=== PATIENT | female | born 1940 | race Caucasian/White ===

== ENCOUNTER 2016-08-06 12:47 | Inpatient (IN) | payer OTHER, BC ==
[2016-08-06 12:55] VITALS: BMI 34.9
[2016-08-06] MEDS ORDERED: LABETALOL HCL 5 MG/1 ML (100MG/20 ML VIAL) IVPUSH ONE (13:34)
[2016-08-06 13:38] LABS: BASOPHIL 0.3 % (0-2.0); EOSINOPHIL 0.1 % (0-4.5); MCH 29.6 pg (25.7-33.7); MEAN CELL VOLUME 87.2 fl (80-96); MEAN PLT VOLUME 8.2 fl (7.5-11.1); NEUTROPHILS 67.3 % (42.8-82.8); PLATELET COUNT 249 K/MM3 (134-434); WHITE BLOOD COUNT 8.2 K/mm3 (4.0-10.8)
[2016-08-06] MEDS ORDERED: LABETALOL HCL 5 MG/1 ML (100MG/20 ML VIAL) ONE (13:38)
--- NOTE | 2016-08-06 13:40 | PDOC ---
History of Present Illness <Allie Morales - Last Filed: 08/06/16 16:15> - History of Present Illness Initial Comments: 08/06/16 13:35 75-year-old female with a past medical history of hypertension, who was on medications in the past, but has not been on any medications for quite some time She has no history of CAD or diabetes She states that yesterday she felt a little off balance and had a headache, so she took her blood pressure, and it was 210/105, but she refused to come to the ER at that time She took a baby aspirin, and before bedtime took her blood pressure again and it was 160/90 She denies any focal neurologic complaints She awakened this morning with a blood pressure of 160/86, but then she started feeling dizzy and off balance again and her blood pressure was 220/110, prompting her to come to the emergency department She denies any focal neurologic complaints, and there were no reports of slurred speech or dysarthric speech She denies any visual changes, double vision, or blurred vision She denies any focal weakness She denies any chest pain or shortness of breath She denies any lower extremity edema She denies any other complaints at this time She does have a recent compression fracture in her lumbar spine, and is having some pain from this She just had a steroid injection for this She denies any other complaints at this time, and the remainder of the review of systems is negative <Shae Bowden - Last Filed: 08/07/16 15:29> - General Chief Complaint: Blood Pressure Problem Stated Complaint: ELEVATED BLOOD PRESSURE X 1 DAY Time Seen by Provider: 08/06/16 13:22 Past History <Allie Morales - Last Filed: 08/06/16 16:15> - Past Medical History Other medical history: COMPRESSION FRACTURE L4 - Surgical History Cholecystectomy: Yes - Psycho/Social/Smoking Cessation Hx Anxiety: No Suicidal Ideation: No Smoking History: Never smoked Information on smoking cessation initiated: No Hx Alcohol Use: No Drug/Substance Use Hx: No Substance Use Type: None <Shae Bowden - Last Filed: 08/07/16 15:29> - Past Medical History Allergies/Adverse Reactions: Allergies Allergy/AdvReac Type Severity Reaction Status Date / Time No Known Allergies Allergy Verified 08/06/16 12:48 Home Medications: Ambulatory Orders NK [No Known Home Medication] 08/06/16 *Physical Exam - Vital Signs Last Vital Signs Temp Pulse Resp BP Pulse Ox 98.1 F 70 16 176/75 97 08/06/16 12:48 08/06/16 16:08 08/06/16 16:08 08/06/16 16:08 08/06/16 13:28 <Allie Morales - Last Filed: 08/06/16 16:15> - Vital Signs Last Vital Signs Temp Pulse Resp BP Pulse Ox 98.1 F 74 16 216/103 97 08/06/16 12:48 08/06/16 13:28 08/06/16 13:28 08/06/16 13:28 08/06/16 13:28 - Physical Exam Comments: 08/06/16 13:37 Physical exam Last Vital Signs Temp Pulse Resp BP Pulse Ox 98.1 F 74 16 216/103 97 08/06/16 12:48 08/06/16 13:28 08/06/16 13:28 08/06/16 13:28 08/06/16 13:28 GENERAL: The patient is awake, alert, and fully oriented, and in no apparent distress. HEAD: Normal with no signs of trauma. EYES: Pupils equal, round and reactive to light, extraocular movements intact, sclera anicteric, conjunctiva are normal. ENT: nares patent, oropharynx clear without exudates. Moist mucous membranes. NECK: Normal range of motion, supple LUNGS: Breath sounds equal, clear to auscultation bilaterally. No wheezes, and no crackles. HEART: Regular rate and rhythm, normal S1 and S2 without murmur, rub or gallop. ABDOMEN: Soft, nontender, normoactive bowel sounds. No guarding, no rebound. No masses appreciated. EXTREMITIES: Normal range of motion, no edema. No clubbing or cyanosis. No cords, erythema, or tenderness. NEURO: Mental status: The patient is oriented x3. Cranial nerves: Cranial nerves II through XII are intact Motor: The upper extremities are 5 over 5 in all muscle groups. The lower extremities are 5 over 5 in all muscle groups. Sensation: Sensation is intact to light touch throughout. Cerebellar: Cvzxys-giyemc-[id number] is normal in both upper extremities. Heel-knee- martinez is normal in both lower extremities. Grossly nonfocal neurologic exam without gait testing PSYCH: Normal mood, normal affect. SKIN: Warm, Dry, <Shae Bowden - Last Filed: 08/07/16 15:29> ED Treatment Course - LABORATORY CBC & Chemistry Diagram: 08/06/16 13:15 08/06/16 13:15 - ADDITIONAL ORDERS Additional order review: Laboratory Results 08/06/16 08/06/16 08/06/16 13:15 13:15 13:15 Sodium 134 L Potassium 3.8 Chloride 106 Carbon Dioxide 25 Anion Gap 3 L BUN 18 Creatinine 0.8 Creat Clearance w eGFR > 60 Random Glucose 99 Calcium 9.5 Magnesium 2.0 Total Bilirubin 1.0 AST 30 ALT 41 H Alkaline Phosphatase 79 Creatine Kinase 142 H Troponin I < 0.03 L Total Protein 6.7 Albumin 3.9 08/06/16 13:15 RBC 4.99 MCV 87.2 MCHC 34.0 RDW 13.0 MPV 8.2 Neutrophils % 67.3 Lymphocytes % 23.6 Monocytes % 8.7 Eosinophils % 0.1 Basophils % 0.3 - Medications Given in the ED: ED Medications Discontinued Medications Generic Name Dose Route Start Last Admin Trade Name Freq PRN Reason Stop Dose Admin Labetalol HCl 5 mg 08/06/16 13:34 08/06/16 14:13 Normodyne Injection - IVPUSH 08/06/16 13:35 5 mg ONCE ONE Administration <Allie Morales - Last Filed: 08/06/16 16:15> - LABORATORY CBC & Chemistry Diagram: 08/06/16 22:07 08/06/16 22:07 - RADIOLOGY Radiology Studies Ordered: Category Date Time Status HEAD CT WITHOUT CONTRAST [CT] Stat CT Scan 08/06/16 13:33 Ordered CHEST X-RAY PORTABLE* [RAD] Stat Radiology 08/06/16 13:34 Ordered <Shae Bowden - Last Filed: 08/07/16 15:29> Medical Decision Making - Medical Decision Making 08/06/16 16:[address] Tien Alamo at [phone], Dr. Best is software applications engineer. Awaiting call back. <Allie Morales - Last Filed: 08/06/16 16:15> - Medical Decision Making 08/06/16 13:39 KG Normal sinus rhythm 73, normal axis Normal AV and IV conduction time Normal QTC Essentially normal EKG When compared to the EKG of 05/27/2008 Today's EKG is unchanged from the prior EKG Most likely accelerated hypertension 08/06/16 16:05 Chest [id number] heart, no acute chest pathology, unchanged since prior CT scan of the head without No intracranial hemorrhage, no discrete infarct, mild periventricular and subcortical microvascular changes noted Labwork reviewed Laboratory Results - last 24 hr 08/06/16 08/06/16 08/06/16 13:15 13:15 13:15 WBC 8.2 RBC 4.99 Hgb 14.8 Hct 43.5 MCV 87.2 MCHC 34.0 RDW 13.0 Plt Count 249 MPV 8.2 Neutrophils % 67.3 Lymphocytes % 23.6 Monocytes % 8.7 Eosinophils % 0.1 Basophils % 0.3 Sodium 134 L Potassium 3.8 Chloride 106 Carbon Dioxide 25 Anion Gap 3 L BUN 18 Creatinine 0.8 Creat Clearance w eGFR > 60 Random Glucose 99 Calcium 9.5 Magnesium Total Bilirubin 1.0 AST 30 ALT 41 H Alkaline Phosphatase 79 Creatine Kinase 142 H Troponin I < 0.03 L Total Protein 6.7 Albumin 3.9 08/06/16 13:15 WBC RBC Hgb Hct MCV MCHC RDW Plt Count MPV Neutrophils % Lymphocytes % Monocytes % Eosinophils % Basophils % Sodium Potassium Chloride Carbon Dioxide Anion Gap BUN Creatinine Creat Clearance w eGFR Random Glucose Calcium Magnesium 2.0 Total Bilirubin AST ALT Alkaline Phosphatase Creatine Kinase Troponin I Total Protein Albumin Repeat blood pressure Vital Signs - 24 hr 08/06/16 08/06/16 08/06/16 12:48 13:28 13:40 Temperature 98.1 F Pulse Rate 76 Pulse Rate [ 74 Right Radial] Respiratory 18 16 Rate Blood Pressure 210/101 Blood Pressure 216/103 182/81 [Left Arm] O2 Sat by Pulse 100 97 Oximetry (%) 08/06/16 08/06/16 08/06/16 14:01 14:33 14:51 Temperature Pulse Rate Pulse Rate [ 73 70 64 Right Radial] Respiratory 18 16 16 Rate Blood Pressure Blood Pressure 192/83 162/76 161/74 [Left Arm] O2 Sat by Pulse Oximetry (%) 08/06/16 15:32 Temperature Pulse Rate Pulse Rate [ 70 Right Radial] Respiratory 16 Rate Blood Pressure Blood Pressure 154/74 [Left Arm] O2 Sat by Pulse Oximetry (%) 08/06/16 16:[address] Best covering Dr. Alamo Will admit for accelerated hypertension <Shae Bowden - Last Filed: 08/07/16 15:29> *DC/Admit/Observation/Transfer <Allie Morales - Last Filed: 08/06/16 16:15> - Discharge Dispostion Admit: Yes <Shae Bowden - Last Filed: 08/07/16 15:29> Diagnosis at time of Disposition: Dizziness, Headache, Accelerated hypertension - Discharge Dispostion Condition at time of disposition: Fair
[2016-08-06 13:50] LABS: CPK(DFH) 142 IU/L (26-140)
[2016-08-06 13:51] LABS: ALBUMIN 3.9 g/dl (3.5-5.0); ALK PHOS 79 U/L (32-92); ANION GAP 3 (8-16); CALCIUM 9.5 mg/dl (8.4-10.2); CO2 25 mmol/L (22-28); CREATININE 0.8 mg/dl (0.6-1.3); GLUCOSE,RANDOM 99 mg/dl (74-106); SGOT/AST 30 U/L (10-42); SGPT/ALT 41 U/L (10-40); TOT PROT 6.7 g/dl (6.4-8.3)
[2016-08-06 14:29] LABS: TROPONIN I (DFP) < 0.03 ng/ml (0.03-0.50)
[2016-08-06] MEDS ORDERED: ONDANSETRON *ODT* 4 MG TABLET SL PRN (18:51)
[2016-08-06] MEDS ORDERED: ACETAMINOPHEN 325 MG TABLET (FP) PO PRN (18:51)
[2016-08-06 23:04] LABS: ALBUMIN 3.6 g/dl (3.5-5.0); BILIRUBIN,TOTAL 0.5 mg/dl (0.2-1.0); CALCIUM 9.3 mg/dl (8.4-10.2); MCH 29.1 pg (25.7-33.7); MCHC 33.4 g/dl (32.0-36.0); MEAN CELL VOLUME 87.3 fl (80-96); MEAN PLT VOLUME 8.9 fl (7.5-11.1); PLATELET COUNT 262 K/MM3 (134-434); RDW 12.8 % (11.6-15.6); TOT PROT 6.4 g/dl (6.4-8.3); WHITE BLOOD COUNT 9.4 K/mm3 (4.0-10.8)
--- NOTE | 2016-08-07 07:46 | HP ---
Admitting History and Physical - Admission History of Present Illness: 75-year-old female with a past medical history of hypertension, who was on medications in the past, but has not taken on any medications for quite some time She has no history of CAD or diabetes She states that yesterday she felt a little off balance and had a headache, so she took her blood pressure, and it was 210/105, but she refused to come to the ER at that time She took a baby aspirin, and before bedtime took her blood pressure again and it was 160/90 She woke up yesterday with a blood pressure of 160/86, but then she started feeling dizzy and off balance again and her blood pressure was 220/110, prompting her to come to the emergency department This am c/o feeling off balance - Past Medical History Cardiovascular: Yes: HTN Musculoskeletal: Yes: Chronic low back pain, Other (compresion fracture) - Smoking History Smoking history: Never smoked Have you smoked in the past 12 months: No - Alcohol/Substance Use Hx Alcohol Use: No Home Medications - Allergies Allergies/Adverse Reactions: Allergies Allergy/AdvReac Type Severity Reaction Status Date / Time No Known Allergies Allergy Verified 08/06/16 12:48 - Home Medications Home Medications: Ambulatory Orders NK [No Known Home Medication] 08/06/16 Review of Systems - Review of Systems Neck: reports: No Symptoms Cardiovascular: denies: Chest Pain, Shortness of Breath Respiratory: denies: SOB, Wheezing Gastrointestinal: denies: Abdominal Pain Genitourinary: reports: No Symptoms Musculoskeletal: reports: Back Pain Neurological: reports: Dizziness, Incoordination, Unsteady Gait. denies: Change in Speech, Confusion Physical Examination Vital Signs: Vital Signs Temperature 97.7 F 08/07/16 06:37 Pulse Rate 66 08/07/16 06:37 Respiratory Rate 17 08/07/16 06:37 Blood Pressure 155/67 08/07/16 06:37 O2 Sat by Pulse Oximetry (%) 100 08/07/16 06:37 Constitutional: Yes: No Distress Cardiovascular: Yes: Regular Rate and Rhythm Respiratory: Yes: Regular, CTA Bilaterally Gastrointestinal: Yes: Normal Bowel Sounds, Soft Edema: No Neurological: Yes: Alert, Oriented, Unsteady Gait Labs: CBC, BMP 08/06/16 22:07 08/06/16 22:07 Imaging - Results Chest X-ray: Report Reviewed Cat Scan: Report Reviewed EKG: Report Reviewed Problem List - Problems (1) Accelerated hypertension Assessment/Plan: monitor bp on current meds echo labs Code(s): I10 - ESSENTIAL (PRIMARY) HYPERTENSION (2) Dizziness Assessment/Plan: maybe due to htn r/o cva--mri Code(s): R42 - DIZZINESS AND GIDDINESS (3) Back pain Assessment/Plan: review old records Code(s): M54.9 - DORSALGIA, UNSPECIFIED
[2016-08-07 09:17] LABS: CHOLESTEROL 203 mg/dl
[2016-08-07] MEDS: LISINOPRIL 5 MG TABLET (FP) PO SCH (10:00)
[2016-08-07] MEDS: amLODIPine BESYLATE 5 MG TABLET (FP) PO SCH (10:00)
[2016-08-07 11:22] LABS: CPK(DFH) 86 IU/L (26-140)
--- NOTE | 2016-08-07 13:55 | EKG ---
Test Reason : Blood Pressure : / mmHG Vent. Rate : 073 BPM Atrial Rate : 073 BPM P-R Int : 138 ms QRS Dur : 090 ms QT Int : 406 ms P-R-T Axes : 049 044 060 degrees QTc Int : 447 ms NORMAL SINUS RHYTHM NONSPECIFIC ST ABNORMALITY WHEN COMPARED WITH ECG OF 27-MAY-2008 10:14, NO SIGNIFICANT CHANGE WAS FOUND Confirmed by MD DESAI MARJORY ([id number]) on 08/07/2016 1:55:35 PM Referred By: MARK LYONS Confirmed By:AGUILAR DESAI MD
[2016-08-07 15:31] LABS: TROPONIN I (DFP) < 0.03 ng/ml (0.03-0.50)
[2016-08-07 21:23] LABS: URINE APPEARANCE Clear; URINE BILIRUBIN Negative (NEGATIVE); URINE BLOOD Trace-intact (NEGATIVE); URINE COLOR YELLOW; URINE GLUCOSE (UA) Negative (NEGATIVE); URINE KETONE Trace (NEGATIVE); URINE LEUK ESTERASE Trace (NEGATIVE); URINE NITRITE Negative (NEGATIVE); URINE PROTEIN Negative (NEGATIVE); URINE UROBILINOGEN 1.0 E.U/dl (0.2-1.0)
--- NOTE | 2016-08-08 07:37 | PN ---
Progress Note, Physician History of Present Illness: C/O UNSTEADY GAIT - Current Medication List Current Medications: Active Medications Acetaminophen (Tylenol -) 650 mg PO Q6H PRN PRN Reason: FEVER OR PAIN Amlodipine Besylate (Norvasc -) 5 mg PO DAILY [facility] Last Admin: 08/07/16 10:00 Dose: 5 mg Lisinopril (Prinivil) 5 mg PO DAILY [facility] Last Admin: 08/07/16 10:00 Dose: 5 mg Ondansetron HCl (Zofran Odt -) 4 mg SL Q6H PRN PRN Reason: NAUSEA AND/OR VOMITING - Objective Vital Signs: Vital Signs Temperature 98.2 F 08/08/16 06:00 Pulse Rate 72 08/08/16 06:00 Respiratory Rate 19 08/08/16 06:00 Blood Pressure 138/65 08/08/16 06:00 O2 Sat by Pulse Oximetry (%) 98 08/08/16 06:00 Cardiovascular: Yes: Regular Rate and Rhythm Respiratory: Yes: Regular, CTA Bilaterally Gastrointestinal: Yes: Normal Bowel Sounds, Soft. No: Tenderness Edema: No Neurological: Yes: Alert, Unsteady Gait Labs: CBC, BMP 08/06/16 22:07 08/06/16 22:07 Problem List - Problems (1) Accelerated hypertension Assessment/Plan: monitor bp on current meds echo labs Code(s): I10 - ESSENTIAL (PRIMARY) HYPERTENSION (2) Dizziness Assessment/Plan: maybe due to htn r/o cva--mri Code(s): R42 - DIZZINESS AND GIDDINESS (3) Back pain Assessment/Plan: reviewed old records--compression fracture pt Code(s): M54.9 - DORSALGIA, UNSPECIFIED
[2016-08-08] MEDS: amLODIPine BESYLATE 5 MG TABLET (FP) PO SCH (09:23)
[2016-08-08] MEDS: LISINOPRIL 5 MG TABLET (FP) PO SCH (09:23)
[2016-08-08] MEDS ORDERED: PT OWN MED DRAWER 7, Y5N ONE (10:16)
[2016-08-09 06:13] VITALS: BP 146/66; PULSE 66; TEMP 98.1
[2016-08-09] MEDS: amLODIPine BESYLATE 5 MG TABLET (FP) PO SCH (09:56)
[2016-08-09] MEDS: LISINOPRIL 5 MG TABLET (FP) PO SCH (09:56)
== END 2016-08-09 13:00 | DRG 305 ==
LOC: FER 12:47 → FM/S 18:57
PROVIDERS: ADMIT Family Medicine; ATTEND Family Medicine
DX: I10 Essential (primary) hypertension (principal); R51 Headache; R42 Dizziness and giddiness; M54.5 Low back pain; M48.50XS Collapsed vertebra, not elsewhere classified, site unspecified, sequela of fracture
CPT/HCPCS: 36415; 70450-TC; 70551-TC; 71010-TC; 80053; 80061; 81003; 82550; 83036; 83735; 84443; 84484; 85025; 85027; 87086; 87899; 93005; 93306-TC; 93880-TC; 97116-GP; 97161-GP; 99284-25

== ENCOUNTER 2017-02-03 12:00 | Inpatient (IN) | payer OTHER, BC ==
[2017-02-03] MEDS ORDERED: SODIUM CHLORIDE 1,000 ML IV SCH (12:15)
--- NOTE | 2017-02-03 12:20 | PDOC ---
History of Present Illness - General Stated Complaint: SYNCOPE Time Seen by Provider: 02/03/17 12:11 History Source: Patient, Family (Daughter @ bedside) - History of Present Illness Initial Comments: 02/03/17 12:11 Patient is a 76 y.o. female with a PMH of HTN and HLD who presents via EMS following a witnessed syncopal episode. Patient was sitting in a chair speaking normally when daughter noticed she was diaphoretic, patient then became unresponsive for approximately 2-3 minutes. Patient did not fall off the chair or experience any associated trauma. Patient awoke spontaneously while family was waiting for EMS. As per patient and family patient is currently at baseline mental status and patient denies any active medical complaints. Patient was evaluated by her PCP, Dr. Alamo, earlier this week and told she had to start a statin. NKDA Surgical: Cholecytectomy Social: denies cigarettes, denies alcohol, denies recreational drugs PMD: Dr. Tien Alamo Past History - Past Medical History Allergies/Adverse Reactions: Allergies Allergy/AdvReac Type Severity Reaction Status Date / Time No Known Allergies Allergy Verified 02/03/17 12:57 Home Medications: Ambulatory Orders Acetaminophen [Tylenol .Regular Strength -] 650 mg PO Q6H PRN #0 tablet Amlodipine Besylate [Norvasc -] 5 mg PO DAILY #0 tablet 08/09/16 Cholecalciferol (Vitamin D3) [Vitamin D3 -] 1,000 unit PO DAILY 02/03/17 Losartan Potassium 100 mg PO DAILY 02/03/17 HTN: Yes - Surgical History Cholecystectomy: Yes - Suicide/Smoking/Psychosocial Hx Smoking History: Never smoked Have you smoked in the past 12 months: No Hx Alcohol Use: No Drug/Substance Use Hx: No Substance Use Type: None Review of Systems - Review of Systems Constitutional: No: Chills, Fever Respiratory: No: Cough, Shortness of Breath Cardiac (ROS): Yes: Syncope. No: Chest Pain, Lightheadedness, Palpitations : No: Burning, Dysuria Endocrine: Yes: Excessive Sweating All Other Systems: Reviewed and Negative *Physical Exam - Physical Exam General Appearance: Yes: Nourished, Obese HEENT: positive: JOSE Neck: positive: Trachea midline, Supple Respiratory/Chest: positive: Lungs Clear, Normal Breath Sounds Cardiovascular: positive: S1, S2 Vascular Pulses: Dorsalis-Pedis (R): 2+, Doralis-Pedis (L): 2+ Gastrointestinal/Abdominal: positive: Normal Bowel Sounds, Soft Extremity: positive: Normal Capillary Refill, Normal Inspection Integumentary: positive: Normal Color, Dry, Warm Neurologic: positive: permit technician II-XII NML intact, Fully Oriented, Alert, Motor Strength 5/5 ED Treatment Course - LABORATORY CBC & Chemistry Diagram: 02/03/17 12:13 02/03/17 12:12 Medical Decision Making - Medical Decision Making 02/03/17 12:40 Patient is a 76 y.o. female with a PMH of HTN, HLD who presents following a witnessed syncopal episode with no seizure like activity. Initial DDx is for CVA/TIA vs. CT vs. Vasovagal. PLAN: 1. CT Scan, CBC, CMP, UA 02/03/17 12:41 EKG shows NSR, HR 66 with no deviations, normal intervals, no ST elevations/ depressions, good R wave progression V1-V6 02/03/17 12:53 CT head negative. As clinical suspicion for stroke is low given patient's PE, no ASA administered, however given first time syncopal episode patient requires further cardiac evaluation. Paged Dr. Best (covering for patient's PCP Dr. Tien Alamo) for observation admission. 02/03/17 14:20 Patient to be admitted to Dr. Alamo with consult to Dr. Friedman (cardiology). *DC/Admit/Observation/Transfer Diagnosis at time of Disposition: Syncope - Discharge Dispostion Condition at time of disposition: Good Admit: Yes - Referrals - Patient Instructions - Post Discharge Activity
[2017-02-03] MEDS ORDERED: ASPIRIN 325 MG TABLET PO ONE (12:51)
[2017-02-03 13:05] LABS: ALBUMIN 3.6 g/dl (3.4-5.0); ANION GAP 8 (8-16); CHOLESTEROL 181 mg/dL (50-200); CO2 24 mmol/L (21-32); CREATININE 0.9 mg/dL (0.55-1.02); GLUCOSE,RANDOM 107 mg/dL (74-106); SGOT/AST 27 U/L (15-37); SGPT/ALT 36 U/L (12-78)
[2017-02-03 13:07] LABS: ALK PHOS 82 U/L (45-117); BILIRUBIN,TOTAL 0.5 mg/dL (0.2-1.0); CPK 91 IU/L (26-192); TOT PROT 6.5 g/dl (6.4-8.2); TROPONIN I < 0.02 ng/ml (0.00-0.05)
[2017-02-03 13:28] LABS: BASOPHIL 0.5 % (0-2.0); MCH 29.6 pg (25.7-33.7); MCHC 33.3 g/dl (32.0-36.0); MEAN CELL VOLUME 88.9 fl (80-96); MEAN PLT VOLUME 8.6 fl (7.5-11.1); NEUTROPHILS 55.5 % (42.8-82.8); PLATELET COUNT 231 K/MM3 (134-434); WHITE BLOOD COUNT 6.4 K/mm3 (4.0-10.0)
--- NOTE | 2017-02-03 14:07 | PDOC ---
Attending Attestation - Resident Resident Name: Letitia Rivero - ED Attending Attestation I have performed the following: I have examined & evaluated the patient, The case was reviewed & discussed with the resident, I agree w/resident's findings & plan, Exceptions are as noted - HPI HPI: 02/03/17 14:08 76 year old female with HTN and HLD presents with syncope. The patient was in her usual state of health. She was cleaning her hair when her daughter noticed her become diaphoretic and syncopized. Denies head trauma. Did not know any chest pain or shortness of breath. Patient does not recall the events. Return back to baseline with no deficits. - Physicial Exam PE: 02/03/17 14:11 GENERAL: Awake, alert, and fully oriented, in no acute distress. HEAD: No signs of trauma EYES: PERRLA, EOMI, sclera anicteric, conjunctiva clear ENT: Auricles normal inspection, hearing grossly normal, nares patent, oropharynx clear without exudates. NECK: Normal ROM, supple, no lymphadenopathy, JVD, or masses LUNGS: Breath sounds equal, clear to auscultation bilaterally. No wheezes, and no crackles HEART: Regular rate and rhythm, normal S1 and S2, no murmurs, rubs or gallops ABDOMEN: Soft, nontender, normoactive bowel sounds. No guarding, no rebound. No masses EXTREMITIES: Normal range of motion, no edema. No clubbing or cyanosis. No cords, erythema, or tenderness NEUROLOGICAL: Cranial nerves II through XII intact. Normal speech. 5/5 strength upper and lower extremities. No pronator drift. Finger to nose intact. SKIN: Warm, Dry, normal turgor, no rashes or lesions noted. - Medical Decision Making 02/03/17 14:11 Vital Signs Temp Pulse Resp BP Pulse Ox 97.7 F 66 18 126/60 99 02/03/17 12:15 02/03/17 13:10 02/03/17 13:10 02/03/17 13:10 02/03/17 13:10 Patient appears to have a syncopal episode. We'll need to rule out cardiac etiology. EKG is reassuring. However, we'll need to admit the patient to the hospital for telemetry and observation and for further management. Blood work here demonstrates no acute findings and a troponin is negative. We will touch base with the PMD and admit the patient to the hospital. Heart Score/ECG Review #1 ECG reviewed & interpreted by me at: 12:15 02/03/17 14:01 NSR 66, no std/hector, normal axis, normal intervals, QTC 457 msec, on brugada, no HOCM, no WPW
[2017-02-03 15:49] LABS: CPK 90 IU/L (26-192)
[2017-02-03 15:50] LABS: TROPONIN I < 0.02 ng/ml (0.00-0.05)
--- NOTE | 2017-02-03 16:37 | CON.CARD ---
Consult Consult Specialty:: Cardiology Reason for Consultation:: Syncope - History of Present Illness History of Present Illness: 76 F wit HTN was seen in ER now with syncope witnessed by her DTR who is present fo this interview. She was sitting and became weak and diahretic and then passed out lasting about 1 min. No palpitations, chest pain, urinary or bowel incontinence. No prior syncope. She is complaint with medication Amlodipine and losartan Echocardiogram 07/2016 was normal. - History Source History Provided By: Patient, Family Member Limitations to Obtaining History: No Limitations - Past Medical History Cardio/Vascular: Yes: HTN Musculoskeletal: Yes: Chronic low back pain, Other (compresion fracture) - Alcohol/Substance Use Hx Alcohol Use: No - Smoking History Smoking history: Never smoked Have you smoked in the past 12 months: No Home Medications - Allergies Allergies/Adverse Reactions: Allergies Allergy/AdvReac Type Severity Reaction Status Date / Time No Known Allergies Allergy Verified 02/03/17 12:57 - Home Medications Home Medications: Ambulatory Orders Acetaminophen [Tylenol .Regular Strength -] 650 mg PO Q6H PRN #0 tablet Amlodipine Besylate [Norvasc -] 5 mg PO DAILY #0 tablet 08/09/16 Cholecalciferol (Vitamin D3) [Vitamin D3 -] 1,000 unit PO DAILY 02/03/17 Losartan Potassium 100 mg PO DAILY 02/03/17 Review of Systems - Review of Systems Constitutional: reports: No Symptoms Eyes: reports: No Symptoms HENT: reports: No Symptoms Neck: reports: No Symptoms Cardiovascular: reports: No Symptoms Respiratory: reports: No Symptoms Gastrointestinal: reports: No Symptoms Genitourinary: reports: No Symptoms Breasts: reports: No Symptoms Reported Vital Signs: Vital Signs Temperature 97.7 F 02/03/17 12:15 Pulse Rate 66 02/03/17 13:10 Respiratory Rate 18 02/03/17 13:10 Blood Pressure 126/60 02/03/17 13:10 O2 Sat by Pulse Oximetry (%) 99 02/03/17 13:10 Constitutional: Yes: Well Nourished, No Distress, Calm Eyes: Yes: WNL, Conjunctiva Clear, EOM Intact HENT: Yes: Atraumatic, Normocephalic Neck: Yes: Supple, Trachea Midline Respiratory: Yes: Regular, CTA Bilaterally Gastrointestinal: Yes: Normal Bowel Sounds, Soft Cardiovascular: Yes: Regular Rate and Rhythm JVD: No Carotid Bruit: No Heart Sounds: Yes: S1, S2 Edema: No - Other Data Labs, Other Data: CBC, BMP 02/03/17 12:13 02/03/17 12:12 Troponin, BNP 02/03/17 02/03/17 12:12 15:09 Troponin I < 0.02 < 0.02 Troponin, BNP 02/03/17 02/03/17 12:12 15:09 Troponin I < 0.02 < 0.02 Imaging - Results Chest X-ray: Report Reviewed Problem List - Problems (1) Syncope Code(s): R55 - SYNCOPE AND COLLAPSE Assessment/Plan 76 F with HTN and unprovoked syncope. ECG shows NSR without conduction abnormality. History suggestive of vasovagal event. Monitor on telemetry for 24 hours Check orthostatic BP. Can continue with out patient BP therapy
[2017-02-03] MEDS: D5-1/2NS+20 MEQ KCL - 20 MEQ/1,000 ML INFUS.BAG IV SCH (17:04)
[2017-02-03 18:03] VITALS: BMI 38.1
[2017-02-03 18:54] LABS: URINE APPEARANCE SLCLOUDY; URINE BILIRUBIN NEGATIVE (NEGATIVE); URINE BLOOD NEGATIVE (NEGATIVE); URINE COLOR YELLOW; URINE GLUCOSE (UA) NEGATIVE (NEGATIVE); URINE KETONE TRACE (NEGATIVE); URINE NITRITE NEGATIVE (NEGATIVE); URINE PROTEIN NEGATIVE (NEGATIVE); URINE UROBILINOGEN NEGATIVE mg/dL (0.2-1.0)
[2017-02-03 19:42] LABS: CPK 77 IU/L (26-192)
[2017-02-03 19:43] LABS: TROPONIN I < 0.02 ng/ml (0.00-0.05)
[2017-02-03 19:55] LABS: INR 1.1 (0.82-1.09); PROTHROMBIN TIME (PATIENT) 12.4 SEC (9.98-11.88)
[2017-02-03] MEDS: HEPARIN NA (PORCINE) 5,000 UNITS/ML 1ML VIAL SQ SCH (21:33)
[2017-02-03 21:42] LABS: URINE LEUK ESTERASE TRACE (NEGATIVE)
[2017-02-03 22:18] LABS: URINE BACTERIA FEW /hpf (NEGATIVE); URINE RBC 0-2 /hpf (0-3)
[2017-02-04 07:11] LABS: ALBUMIN 3.1 g/dl (3.4-5.0); ANION GAP 8 (8-16); BASOPHIL 0.6 % (0-2.0); BILIRUBIN,TOTAL 0.6 mg/dL (0.2-1.0); CALCIUM 8.4 mg/dL (8.5-10.1); CHOLESTEROL 155 mg/dL (50-200); CO2 24 mmol/L (21-32); CREATININE 0.8 mg/dL (0.55-1.02); EOSINOPHIL 3.8 % (0-4.5); GLUCOSE,RANDOM 95 mg/dL (74-106); MCH 29.7 pg (25.7-33.7); MCHC 33.2 g/dl (32.0-36.0); MEAN CELL VOLUME 89.4 fl (80-96); NEUTROPHILS 47.9 % (42.8-82.8); PLATELET COUNT 224 K/MM3 (134-434); RDW 13.5 % (11.6-15.6); SGOT/AST 19 U/L (15-37); SGPT/ALT 32 U/L (12-78); WHITE BLOOD COUNT 6.4 K/mm3 (4.0-10.0)
[2017-02-04 07:12] LABS: ALK PHOS 71 U/L (45-117); CPK 84 IU/L (26-192); TROPONIN I < 0.02 ng/ml (0.00-0.05)
[2017-02-04] MEDS: ASPIRIN COATED 81 MG TABLET.EC PO SCH (09:18)
[2017-02-04] MEDS: HEPARIN NA (PORCINE) 5,000 UNITS/ML 1ML VIAL SQ SCH ×2 (09:18→21:10)
--- NOTE | 2017-02-04 12:13 | HP ---
Admitting History and Physical - Primary Care Physician PCP: Tien Alamo - Admission Chief Complaint: SYNCOPE History of Present Illness: Patient is a 76 y.o. female with a PMH of HTN and HLD who presents via EMS following a witnessed syncopal episode. Patient was sitting in a chair speaking normally when daughter noticed she was diaphoretic, patient then became unresponsive for approximately 2-3 minutes. Patient did not fall off the chair or experience any associated trauma. Patient awoke spontaneously while family was waiting for EMS. As per patient and family patient is currently at baseline mental status and patient denies any active medical complaints. History Source: Patient, Medical Record - Past Medical History Cardiovascular: Yes: HTN ...: No Musculoskeletal: Yes: Chronic low back pain, Other (compresion fracture) - Smoking History Smoking history: Never smoked Have you smoked in the past 12 months: No - Alcohol/Substance Use Hx Alcohol Use: No Home Medications - Allergies Allergies/Adverse Reactions: Allergies Allergy/AdvReac Type Severity Reaction Status Date / Time No Known Allergies Allergy Verified 02/03/17 12:57 - Home Medications Home Medications: Ambulatory Orders Acetaminophen [Tylenol .Regular Strength -] 650 mg PO Q6H PRN #0 tablet Amlodipine Besylate [Norvasc -] 5 mg PO DAILY #0 tablet 08/09/16 Cholecalciferol (Vitamin D3) [Vitamin D3 -] 1,000 unit PO DAILY 02/03/17 Losartan Potassium 100 mg PO DAILY 02/03/17 Review of Systems - Review of Systems Constitutional: reports: Weakness Eyes: reports: No Symptoms HENT: reports: No Symptoms Neck: reports: No Symptoms Cardiovascular: reports: No Symptoms Respiratory: reports: No Symptoms Gastrointestinal: reports: No Symptoms Genitourinary: reports: No Symptoms Musculoskeletal: reports: No Symptoms Integumentary: reports: No Symptoms Neurological: reports: Syncope Endocrine: reports: No Symptoms Hematology/Lymphatic: reports: No Symptoms Psychiatric: reports: No Symptoms Physical Examination Vital Signs: Vital Signs Temperature 98.2 F 02/04/17 07:14 Pulse Rate 74 02/04/17 07:14 Respiratory Rate 18 02/04/17 07:16 Blood Pressure 148/72 02/04/17 07:14 O2 Sat by Pulse Oximetry (%) 99 02/04/17 07:16 Constitutional: Yes: Mild Distress Eyes: Yes: WNL HENT: Yes: WNL Neck: Yes: WNL Cardiovascular: Yes: WNL Respiratory: Yes: WNL Gastrointestinal: Yes: WNL Musculoskeletal: Yes: WNL Extremities: Yes: WNL Edema: No Peripheral Pulses WNL: Yes Integumentary: Yes: WNL Wound/Incision: Yes: Clean/Dry Neurological: Yes: WNL ...Motor Strength: WNL Psychiatric: Yes: WNL Labs: CBC, BMP 02/04/17 05:00 02/04/17 05:00 Problem List - Problems (1) Syncope Code(s): R55 - SYNCOPE AND COLLAPSE (2) Accelerated hypertension Code(s): I10 - ESSENTIAL (PRIMARY) HYPERTENSION (3) Dizziness Code(s): R42 - DIZZINESS AND GIDDINESS Assessment/Plan CARDIOLOGY WORKUP CHECK LABS PT EVAL FALL RISKS NEUROLOGY EVAL
[2017-02-04] MEDS: D5-1/2NS+20 MEQ KCL - 20 MEQ/1,000 ML INFUS.BAG IV SCH (14:05)
--- NOTE | 2017-02-04 15:58 | CONSULT ---
Consult - text type - Consultation Consultation Note: Neurology History of Present Illness Patient is a 76 y.o. female with a PMH of HTN and HLD who presented via EMS following a witnessed syncopal episode. Patient was sitting in a chair speaking normally when daughter noticed she was diaphoretic, patient then became unresponsive for approximately 2-3 minutes. Patient did not fall off the chair or experience any associated trauma. Patient awoke spontaneously while family was waiting for EMS. She was admitted for further work up. CT head completed and did not show acute changes. Patient at baseline mental status without deficits. Getting cardiac workup, on telemetry, and neurologically stable at this time. Past History - Past Medical History Allergies/Adverse Reactions: Allergies Allergy/AdvReac Type Severity Reaction Status Date / Time No Known Allergies Allergy Verified 02/03/17 12:57 Home Medications: Ambulatory Orders Acetaminophen [Tylenol .Regular Strength -] 650 mg PO Q6H PRN #0 tablet Amlodipine Besylate [Norvasc -] 5 mg PO DAILY #0 tablet 08/09/16 Cholecalciferol (Vitamin D3) [Vitamin D3 -] 1,000 unit PO DAILY 02/03/17 Losartan Potassium 100 mg PO DAILY 02/03/17 HTN: Yes - Surgical History Cholecystectomy: Yes - Suicide/Smoking/Psychosocial Hx Smoking History: Never smoked Have you smoked in the past 12 months: No Hx Alcohol Use: No Drug/Substance Use Hx: No Substance Use Type: None Review of Systems - Review of Systems Constitutional: No: Chills, Fever Respiratory: No: Cough, Shortness of Breath Cardiac (ROS): Yes: Syncope. No: Chest Pain, Lightheadedness, Palpitations : No: Burning, Dysuria Endocrine: Yes: Excessive Sweating All Other Systems: Reviewed and Negative *Physical Exam Vital Signs Period Temp Pulse Resp BP Sys/Bauman Pulse Ox Last 24 Hr 98 F-98.5 F 66-85 16-20 135-158/67-82 99-100 - Physical Exam General Appearance: Yes: Nourished, Obese HEENT: positive: JOSE Neck: positive: Trachea midline, Supple Respiratory/Chest: positive: Lungs Clear, Normal Breath Sounds Cardiovascular: positive: S1, S2 Vascular Pulses: Dorsalis-Pedis (R): 2+, Doralis-Pedis (L): 2+ Gastrointestinal/Abdominal: positive: Normal Bowel Sounds, Soft Extremity: positive: Normal Capillary Refill, Normal Inspection Integumentary: positive: Normal Color, Dry, Warm Neurologic: positive: air conditioning unit tester II-XII NML intact, Fully Oriented, Alert, Motor Strength 5/5, sensory intact, gait deferred CBCD WBC 6.4 K/mm3 (4.0-10.0) 02/04/17 05:00 RBC 4.36 M/mm3 (3.60-5.2) 02/04/17 05:00 Hgb 12.9 GM/dL (10.7-15.3) 02/04/17 05:00 Hct 39.0 % (32.4-45.2) 02/04/17 05:00 MCV 89.4 fl (80-96) 02/04/17 05:00 MCHC 33.2 g/dl (32.0-36.0) 02/04/17 05:00 RDW 13.5 % (11.6-15.6) 02/04/17 05:00 Plt Count 224 K/MM3 (134-434) 02/04/17 05:00 MPV 9.0 fl (7.5-11.1) 02/04/17 05:00 CMP Sodium 142 mmol/L (136-145) 02/04/17 05:00 Potassium 4.1 mmol/L (3.5-5.1) 02/04/17 05:00 Chloride 110 mmol/L (98-107) H 02/04/17 05:00 Carbon Dioxide 24 mmol/L (21-32) 02/04/17 05:00 Anion Gap 8 (8-16) 02/04/17 05:00 BUN 11 mg/dL (7-18) D 02/04/17 05:00 Creatinine 0.8 mg/dL (0.55-1.02) 02/04/17 05:00 Creat Clearance w eGFR > 60 (>60) 02/04/17 05:00 Calcium 8.4 mg/dL (8.5-10.1) L 02/04/17 05:00 Total Bilirubin 0.6 mg/dL (0.2-1.0) 02/04/17 05:00 AST 19 U/L (15-37) D 02/04/17 05:00 ALT 32 U/L (12-78) 02/04/17 05:00 Alkaline Phosphatase 71 U/L (45-117) 02/04/17 05:00 Total Protein 6.0 g/dl (6.4-8.2) L 02/04/17 05:00 Albumin 3.1 g/dl (3.4-5.0) L 02/04/17 05:00 CT head reviewed Medical Decision Making 76 y.o. female with a PMH of HTN and HLD who presented via EMS following a witnessed syncopal episode. Patient was sitting in a chair speaking normally when daughter noticed she was diaphoretic, patient then became unresponsive for approximately 2-3 minutes. Patient did not fall off the chair or experience any associated trauma. Patient awoke spontaneously while family was waiting for EMS. She was admitted for further work up. CT head completed and did not show acute changes Would not require further imaging Getting cardiac workup, on telemetry, and neurologically stable at this time Follow up cardiology rec;d Monitor BP, maintain < 140/90 On amlodipine and losartan Maintain hydration Fall precautions DVT ppx Patient at baseline mental status without deficits.
--- NOTE | 2017-02-04 16:02 | PN ---
Progress Note, Physician Chief Complaint: Cardiology consult No evnts Telem NSR - Current Medication List Current Medications: Active Medications Aspirin (Ecotrin -) 81 mg PO DAILY [facility] Last Admin: 02/04/17 09:18 Dose: 81 mg Heparin Sodium (Porcine) (Heparin -) 5,000 unit SQ BID [facility] Last Admin: 02/04/17 09:18 Dose: 5,000 unit Potassium Chloride/Dextrose/Sod Cl (D5-1/2ns+20 Meq Kcl -) 20 meq in 1,000 mls @ 75 mls/hr IV ASDIR [facility] Last Admin: 02/04/17 14:05 Dose: Not Given - Objective Vital Signs: Vital Signs Temperature 98 F 02/04/17 14:35 Pulse Rate 85 02/04/17 14:35 Respiratory Rate 18 02/04/17 14:35 Blood Pressure 155/82 02/04/17 14:35 O2 Sat by Pulse Oximetry (%) 99 02/04/17 07:16 Constitutional: Yes: Well Nourished, No Distress Eyes: Yes: Conjunctiva Clear, EOM Intact HENT: Yes: Atraumatic, Normocephalic Neck: Yes: Supple, Trachea Midline Cardiovascular: Yes: Regular Rate and Rhythm Respiratory: Yes: Regular, CTA Bilaterally Gastrointestinal: Yes: Normal Bowel Sounds Edema: No Labs: CBC, BMP 02/04/17 05:00 02/04/17 05:00 INR, PTT INR 1.10 (0.82-1.09) 02/03/17 18:58 Problem List - Problems (1) Syncope Code(s): R55 - SYNCOPE AND COLLAPSE Assessment/Plan 76 F with HTN and unprovoked syncope. ECG shows NSR without conduction abnormality. History suggestive of vasovagal event. No events on telemetry. Suggest resuming Amlodipine only and stopping Losartan. Monitor BP in the office. Will see as needed.
[2017-02-04] MEDS: amLODIPine BESYLATE 5 MG TABLET (FP) PO SCH (16:52)
--- NOTE | 2017-02-05 08:55 | DS ---
Physical Examination Vital Signs: Vital Signs Temperature 98.1 F 02/05/17 06:00 Pulse Rate 70 02/05/17 06:00 Respiratory Rate 18 02/05/17 06:00 Blood Pressure 135/56 02/05/17 06:00 O2 Sat by Pulse Oximetry (%) 98 02/04/17 21:00 Findings/Remarks: NO COMPLAINTS Cardiovascular: Yes: Regular Rate and Rhythm Respiratory: Yes: Regular, CTA Bilaterally Gastrointestinal: Yes: Normal Bowel Sounds, Soft Edema: No Neurological: Yes: Alert, Oriented Labs: CBC, BMP 02/04/17 05:00 02/04/17 05:00 Discharge Summary Reason For Visit: SYNCOPE Current Active Problems Syncope (Acute) Hospital Course: Patient is a 76 y.o. female with a PMH of HTN and HLD who presents via EMS following a witnessed syncopal episode. Patient was sitting in a chair speaking normally when daughter noticed she was diaphoretic, patient then became unresponsive for approximately 2-3 minutes. Patient did not fall off the chair or experience any associated trauma. Patient awoke spontaneously while family was waiting for EMS. As per patient and family patient is currently at baseline mental status and patient denies any active medical complaints. History Source: Patient, Medical Record - Past Medical History Cardiovascular: Yes: HTN ...: No Musculoskeletal: Yes: Chronic low back pain, Other (compresion fracture) - Problems (1) Syncope Code(s): R55 - SYNCOPE AND COLLAPSE W/U NEGATIVE MAY HAVE BEEN ORTHOSTATIC BP MONITOR OFF COZAAR SEE BELOW CARDIO 76 F with HTN and unprovoked syncope. ECG shows NSR without conduction abnormality. History suggestive of vasovagal event. No events on telemetry. Suggest resuming Amlodipine only and stopping Losartan. Monitor BP in the office. Will see as needed. NEURO 76 y.o. female with a PMH of HTN and HLD who presented via EMS following a witnessed syncopal episode. Patient was sitting in a chair speaking normally when daughter noticed she was diaphoretic, patient then became unresponsive for approximately 2-3 minutes. Patient did not fall off the chair or experience any associated trauma. Patient awoke spontaneously while family was waiting for EMS. She was admitted for further work up. CT head completed and did not show acute changes Would not require further imaging Getting cardiac workup, on telemetry, and neurologically stable at this time Follow up cardiology rec;d Monitor BP, maintain < 140/90 On amlodipine and losartan Maintain hydration Fall precautions DVT ppx Patient at baseline mental status without deficits. (2) Accelerated hypertension MONITOR ON AMLODIPINE Code(s): I10 - ESSENTIAL (PRIMARY) HYPERTENSION (3) Dizziness ABOVE Code(s): R42 - DIZZINESS AND GIDDINESS Condition: Good - Instructions - Home Medications Comprehensive Discharge Medication List: Ambulatory Orders Acetaminophen [Tylenol .Regular Strength -] 650 mg PO Q6H PRN #0 tablet Amlodipine Besylate [Norvasc -] 5 mg PO DAILY #0 tablet 08/09/16 Cholecalciferol (Vitamin D3) [Vitamin D3 -] 1,000 unit PO DAILY 02/03/17 Aspirin Coated [Ecotrin -] 81 mg PO DAILY tablet.ec 02/05/17
[2017-02-05] MEDS: ASPIRIN COATED 81 MG TABLET.EC PO SCH (09:36)
[2017-02-05] MEDS: HEPARIN NA (PORCINE) 5,000 UNITS/ML 1ML VIAL SQ SCH (09:36)
[2017-02-05] MEDS: amLODIPine BESYLATE 5 MG TABLET (FP) PO SCH (09:36)
--- NOTE | 2017-02-05 09:39 | PN ---
Progress Note (short form) - Note Progress Note: Neurology History of Present Illness Patient is a 76 y.o. female with a PMH of HTN and HLD who presented via EMS following a witnessed syncopal episode. Patient was sitting in a chair speaking normally when daughter noticed she was diaphoretic, patient then became unresponsive for approximately 2-3 minutes. Patient did not fall off the chair or experience any associated trauma. Patient awoke spontaneously while family was waiting for EMS. She was admitted for further work up. CT head completed and did not show acute changes. Patient at baseline mental status without deficits. Getting cardiac workup, on telemetry, and neurologically stable at this time. PLan is for discharge today, spoke with son in law at bedside in detail as well as patient today. Active Medications Amlodipine Besylate (Norvasc -) 5 mg PO DAILY [facility] Last Admin: 02/05/17 09:36 Dose: 5 mg Aspirin (Ecotrin -) 81 mg PO DAILY [facility] Last Admin: 02/05/17 09:36 Dose: 81 mg Heparin Sodium (Porcine) (Heparin -) 5,000 unit SQ BID [facility] Last Admin: 02/05/17 09:36 Dose: 5,000 unit *Physical Exam Vital Signs Period Temp Pulse Resp BP Sys/Bauman Pulse Ox Last 24 Hr 97.9 F-98.5 F 70-85 18-19 135-156/56-85 98 - Physical Exam General Appearance: Yes: Nourished, Obese HEENT: positive: JOSE Neck: positive: Trachea midline, Supple Respiratory/Chest: positive: Lungs Clear, Normal Breath Sounds Cardiovascular: positive: S1, S2 Vascular Pulses: Dorsalis-Pedis (R): 2+, Doralis-Pedis (L): 2+ Gastrointestinal/Abdominal: positive: Normal Bowel Sounds, Soft Extremity: positive: Normal Capillary Refill, Normal Inspection Integumentary: positive: Normal Color, Dry, Warm Neurologic: positive: human resources benefits manager II-XII NML intact, Fully Oriented, Alert, Motor Strength 5/5, sensory intact, gait deferred CBCD WBC 6.4 K/mm3 (4.0-10.0) 02/04/17 05:00 RBC 4.36 M/mm3 (3.60-5.2) 02/04/17 05:00 Hgb 12.9 GM/dL (10.7-15.3) 02/04/17 05:00 Hct 39.0 % (32.4-45.2) 02/04/17 05:00 MCV 89.4 fl (80-96) 02/04/17 05:00 MCHC 33.2 g/dl (32.0-36.0) 02/04/17 05:00 RDW 13.5 % (11.6-15.6) 02/04/17 05:00 Plt Count 224 K/MM3 (134-434) 02/04/17 05:00 MPV 9.0 fl (7.5-11.1) 02/04/17 05:00 CMP Sodium 142 mmol/L (136-145) 02/04/17 05:00 Potassium 4.1 mmol/L (3.5-5.1) 02/04/17 05:00 Chloride 110 mmol/L (98-107) H 02/04/17 05:00 Carbon Dioxide 24 mmol/L (21-32) 02/04/17 05:00 Anion Gap 8 (8-16) 02/04/17 05:00 BUN 11 mg/dL (7-18) D 02/04/17 05:00 Creatinine 0.8 mg/dL (0.55-1.02) 02/04/17 05:00 Creat Clearance w eGFR > 60 (>60) 02/04/17 05:00 Calcium 8.4 mg/dL (8.5-10.1) L 02/04/17 05:00 Total Bilirubin 0.6 mg/dL (0.2-1.0) 02/04/17 05:00 AST 19 U/L (15-37) D 02/04/17 05:00 ALT 32 U/L (12-78) 02/04/17 05:00 Alkaline Phosphatase 71 U/L (45-117) 02/04/17 05:00 Total Protein 6.0 g/dl (6.4-8.2) L 02/04/17 05:00 Albumin 3.1 g/dl (3.4-5.0) L 02/04/17 05:00 CT head reviewed Medical Decision Making 76 y.o. female with a PMH of HTN and HLD who presented via EMS following a witnessed syncopal episode. Patient was sitting in a chair speaking normally when daughter noticed she was diaphoretic, patient then became unresponsive for approximately 2-3 minutes. Patient did not fall off the chair or experience any associated trauma. Patient awoke spontaneously while family was waiting for EMS. She was admitted for further work up. CT head completed and did not show acute changes Would not require further imaging Getting cardiac workup, on telemetry, and neurologically stable at this time Follow up cardiology rec;d Monitor BP, maintain < 140/90 On amlodipine and losartan Maintain hydration Fall precautions DVT ppx Patient at baseline mental status without deficits For discharge today Discussion with patient and son regarding follow up Continue hydration
--- NOTE | 2017-02-05 09:49 | EKG ---
Test Reason : Blood Pressure : / mmHG Vent. Rate : 081 BPM Atrial Rate : 081 BPM P-R Int : 184 ms QRS Dur : 088 ms QT Int : 398 ms P-R-T Axes : 051 044 050 degrees QTc Int : 462 ms NORMAL SINUS RHYTHM NORMAL ECG WHEN COMPARED WITH ECG OF 03-FEB-2017 12:11, NO SIGNIFICANT CHANGE WAS FOUND Confirmed by ALBERT COOPER MD ([id number]) on 02/05/2017 9:49:07 AM Referred By: Luz Maria REED Confirmed By:ALBERT COOPER MD
--- NOTE | 2017-02-05 09:54 | EKG ---
Test Reason : Blood Pressure : / mmHG Vent. Rate : 066 BPM Atrial Rate : 066 BPM P-R Int : 178 ms QRS Dur : 088 ms QT Int : 436 ms P-R-T Axes : 047 029 047 degrees QTc Int : 457 ms NORMAL SINUS RHYTHM NORMAL ECG WHEN COMPARED WITH ECG OF 06-AUG-2016 13:04, NO SIGNIFICANT CHANGE WAS FOUND Confirmed by ALBERT COOPER MD ([id number]) on 02/05/2017 9:53:43 AM Referred By: Confirmed By:ALBERT COOPER MD
[2017-02-05 15:26] VITALS: BP 140/74; PULSE 80; TEMP 98.4
== END 2017-02-05 17:07 | disposition home or self-care (01) | DRG 312 ==
LOC: JER 12:00 → JERBED 14:24 → J4W 17:49
PROVIDERS: ADMIT Family Medicine; ATTEND Family Medicine
DX: R55 Syncope and collapse (principal); I10 Essential (primary) hypertension; E78.5 Hyperlipidemia, unspecified; E66.9 Obesity, unspecified; Z68.38 Body mass index [BMI] 38.0-38.9, adult; R42 Dizziness and giddiness
CPT/HCPCS: 36415; 70450-TC; 71010-TC; 80053; 80061; 81003; 81015; 82550; 83721; 84484; 85025; 85610; 86850; 86900; 86901; 87086; 93005; 93010; 93306-TC; 97116-GP; 97161-GP; 99284-25; J1644

== ENCOUNTER 2018-12-08 19:29 | Emergency (ER) | payer BC, OTHER ==
[2018-12-08 19:50] VITALS: BP 175/98; PULSE 94; TEMP 98.1; BMI 37.5
[2018-12-08] MEDS ORDERED: KETOROLAC TROMETHAMINE 60 MG/2 ML VIAL IM ONE (20:35)
[2018-12-08] MEDS ORDERED: KETOROLAC TROMETHAMINE 60 MG/2 ML VIAL ONE (20:38)
--- NOTE | 2018-12-09 00:57 | PDOC ---
Documentation entered by Ross Dinh SCRIBE, acting as scribe for April Blue MD. April Blue MD: This documentation has been prepared by the Fabrizio patrick Aiswarya, SCRIBE, under my direction and personally reviewed by me in its entirety. I confirm that the documentation accurately reflects all work, treatment, procedures, and medical decision making performed by me. History of Present Illness - General Chief Complaint: Pain, Acute Stated Complaint: FELL IN BATHTUB YESTERDAY,BACK PAIN Time Seen by Provider: 12/08/18 19:40 History Source: Patient Exam Limitations: No Limitations - History of Present Illness Initial Comments: 12/08/18 21:05 The patient is a 78 year old female, with a significant PMH of HTN, compression FX, and herniated disc, who presents to the emergency department with back pain s/p fall that occurred last night. The patient states she fell on her back while taking a shower yesterday. The patient noticed mild intermittent right sided back pain that progressively worsened today, no relief with Advil. She reports pain is exacerbated with movement and lying down, alleviated when sitting up. The patient denies any numbness or tingling. Denies head injury or LOC. Denies chest pain, shortness of breath, headache and dizziness. Allergies: NKDA Past surgical history: compression FX, herniated disc, Social history: None reported PCP: Dr. Alamo Past History - Past Medical History Allergies/Adverse Reactions: Allergies Allergy/AdvReac Type Severity Reaction Status Date / Time No Known Allergies Allergy Verified 12/08/18 19:31 Home Medications: Ambulatory Orders Amlodipine Besylate [Norvasc -] 5 mg PO DAILY 12/08/18 Ibuprofen [Advil -] 200 mg PO QID 12/08/18 Methocarbamol [Robaxin -] 500 mg PO BID 12/08/18 Tizanidine HCl [Zanaflex (Nf) -] 2 mg PO BID PRN #14 tablet 12/08/18 Tramadol HCl/Acetaminophen [Ultracet Tablet] 1 each PO TID PRN #20 tablet MDD 3 tabs 12/08/18 COPD: No HTN: Yes Other medical history: COMPRESSION FX, HERNIATED DISC - Surgical History Cholecystectomy: Yes - Suicide/Smoking/Psychosocial Hx Smoking History: Never smoked Have you smoked in the past 12 months: No Information on smoking cessation initiated: No Hx Alcohol Use: No Drug/Substance Use Hx: No Substance Use Type: None Review of Systems - Review of Systems Able to Perform ROS?: Yes Comments:: 12/08/18 21:05 GENERAL/CONSTITUTIONAL: No fever or chills. No weakness. HEAD, EYES, EARS, NOSE AND THROAT: No change in vision. No ear pain or discharge. No sore throat. CARDIOVASCULAR: No chest pain or shortness of breath. RESPIRATORY: No cough, wheezing, or hemoptysis. GASTROINTESTINAL: No nausea, vomiting, diarrhea or constipation. GENITOURINARY: No dysuria, frequency, or change in urination. MUSCULOSKELETAL: +back pain . SKIN: No rash NEUROLOGIC: No headache, vertigo, loss of consciousness, or change in strength/ sensation. ENDOCRINE: No increased thirst. No abnormal weight change. HEMATOLOGIC/LYMPHATIC: No anemia, easy bleeding, or history of blood clots. ALLERGIC/IMMUNOLOGIC: No hives or skin allergy. *Physical Exam - Vital Signs Last Vital Signs Temp Pulse Resp BP Pulse Ox 98.1 F 94 H 18 175/98 H 100 12/08/18 19:35 12/08/18 19:35 12/08/18 19:35 12/08/18 19:35 12/08/18 19:35 - Physical Exam Comments: 12/08/18 21:05 GENERAL: Awake, alert, and fully oriented, in no acute distress HEAD: No signs of trauma LUNGS: Breath sounds equal, clear to auscultation bilaterally. No wheezes, and no crackles HEART: Regular rate and rhythm, normal S1 and S2, no murmurs, rubs or gallops ABDOMEN: Soft, nontender, normoactive bowel sounds. No guarding, no rebound. No masses EXTREMITIES: + Tenderness without step off of rib 5- 9 posterior axillary line and left costal margin anterior axillary line. No midline spinal tenderness neck to the lumbar sacral area. NEUROLOGICAL: Cranial nerves II through XII grossly intact. Normal speech. SKIN: Warm, Dry, normal turgor, no rashes or lesions noted. ED Treatment Course - RADIOLOGY Radiology Studies Ordered: Category Date Time Status RIBS RIGHT SIDE [RAD] Stat Radiology 12/08/18 20:35 Taken RIBS-LEFT SIDE [RAD] Stat Radiology 12/08/18 20:35 Taken - Medications Given in the ED: ED Medications Discontinued Medications Generic Name Dose Route Start Last Admin Trade Name Rip PRN Reason Stop Dose Admin Ketorolac Tromethamine 60 mg 12/08/18 20:35 12/08/18 20:44 Toradol Injection - IM 12/08/18 20:36 60 mg ONCE ONE Administration Progress Note - Progress Note Progress Note: As noted above, this 78-year-old woman presents with a history of falling against the wall of her Jacuzzi yesterday, impacting the posterior rib cage ( right greater than left). Since then, she has been functional, able to bear weight without significant lower extremity pain but intermittently has severe spasms of pain in the left posterior mid thoracic area. Otherwise, she has no shortness of breath/fever/cough. Exam, as noted, reveals mild to moderate tenderness of the fifth through eighth ribs in the posterior axillary line without step offs or crepitus palpated. Lung sounds are equal bilaterally. No midline spine is nontender from neck to sacrum. Right rib series performed: Preliminary interpretation by Imaging business solution analyst: Bibasilar linear airspace opacities atelectasis versus scar present. No pneumothorax. No evidence for acute displaced rib fracture or traumatic alignment. Degenerative changes of the spine are present Results discussed with the patient and her daughter. Patient has not been able to rest or sleep in the supine position since the injury. There is a recliner in the daughter's home. She will be discharged to stay with her daughter fátima, sleeping in a recliner as needed with legs elevated. ibuprofen taken with food (which patient has tolerated without side effects) recommended for pain control. The patient and her daughter asked for additional medication to be used as needed for muscle spasms or more severe pain. Ultracet will be prescribed to be used alternating with ibuprofen as needed, especially for more severe pain. Sedating effects of this medication discussed with the patient and her daughter. Also, the patient was given methocarbamol yesterday by her daughter without significant side effects. The patient and her daughter requested a prescription for muscle relaxant. The sedating effects of this medication also discussed with them, with the risks explained. Small prescription sent for tizanidine, 2 mg to be taken up to twice a day as needed for muscle spasms. Warm compresses can also be put on the area where muscle spasms a be occurring. Patient should return immediately to the ER if she has severe, persistent pain or experiences shortness of breath/cough/fever. Follow-up with PMD, should be planned for the next 2-3 days *DC/Admit/Observation/Transfer Diagnosis at time of Disposition: Contusion of rib on left side - Discharge Dispostion Disposition: HOME Condition at time of disposition: Stable - Prescriptions Prescriptions: Tizanidine HCl [Zanaflex (Nf) -] 2 mg PO BID PRN #14 tablet PRN Reason: Muscle Spasms Tramadol HCl/Acetaminophen [Ultracet Tablet] 1 each PO TID PRN #20 tablet MDD 3 tabs PRN Reason: Pain - Referrals Referrals: Tien Alamo MD [Primary Care Provider] - 3 days - Patient Instructions Printed Discharge Instructions: DI for Rib Contusion Additional Instructions: Local warmth to area of pain/tenderness Alternate ibuprofen (take with food) with Ultracet (up to 3 times a day) Tizanidine 2 mg up to twice a day as needed for muscle spasms Follow-up with within the next 2 to 3 days Return to ER if you have severe persistent pain, cough or shortness of breath - Post Discharge Activity
== END 2018-12-08 22:10 | disposition home or self-care (01) ==
LOC: FER 19:29
PROC: 3E0233Z Introduction of Anti-inflammatory into Muscle, Percutaneous Approach (ICD-10-PCS; principal; 2018-12-08)
DX: S20.212A Contusion of left front wall of thorax, initial encounter (principal); W18.2XXA Fall in (into) shower or empty bathtub, initial encounter; Y93.E1 Activity, personal bathing and showering; Y92.002 Bathroom of unspecified non-institutional (private) residence as the place of occurrence of the external cause; Z91.81 History of falling; I10 Essential (primary) hypertension; M51.86 Other intervertebral disc disorders, lumbar region
CPT/HCPCS: 71101-TC-LT-FY; 71101-TC-RT-FY; 99281-25

== ENCOUNTER 2020-08-26 10:07 | Inpatient (IN) | payer OTHER, BC ==
[2020-08-26] MEDS ORDERED: CYCLOBENZAPRINE HCL 10 MG TABLET (FP) PO ONE (10:27)
[2020-08-26] MEDS ORDERED: ACETAMINOPHEN 325 MG TABLET (FP) PO ONE (10:27)
[2020-08-26] MEDS ORDERED: ACETAMINOPHEN 325 MG TABLET (FP) ONE (10:31)
[2020-08-26] MEDS ORDERED: CYCLOBENZAPRINE HCL 10 MG TABLET (FP) ONE (10:31)
[2020-08-26] MEDS ORDERED: morphine CARPU-JECT 2 MG/1 ML DISP.SYRIN IVPUSH ONE ×2 (11:10→16:49)
[2020-08-26] MEDS ORDERED: morphine CARPU-JECT 4 MG/1 ML DISP.SYRIN IVPUSH ONE (11:12)
[2020-08-26] MEDS ORDERED: morphine SULFATE 4 MG/ML VIAL ONE (11:14)
[2020-08-26 11:37] LABS: BASO % 0.9 % (0-2.0); EOS % 0.2 % (0-4.5); HEMATOCRIT 41.2 % (32.4-45.2); HEMOGLOBIN 14.1 GM/dL (10.7-15.3); MCH 30.3 pg (25.7-33.7); MCHC 34.3 g/dl (32.0-36.0); MEAN CELL VOLUME 88.3 fl (80-96); MEAN PLT VOLUME 7.8 fl (7.5-11.1); MONO % 11.3 % (3.8-10.2); NEUT % 68.6 % (42.8-82.8); PLATELET COUNT 253 K/MM3 (134-434); RBC 4.67 M/mm3 (3.60-5.2); RDW 13.4 % (11.6-15.6); WHITE BLOOD COUNT 10.5 K/mm3 (4.0-10.0)
[2020-08-26 11:59] LABS: ALBUMIN 3.6 g/dl (3.4-5.0); BLOOD UREA NITROGEN 13.5 mg/dL (7-18); CALCIUM 8.6 mg/dL (8.5-10.1)
[2020-08-26 12:02] LABS: CREATININE 0.8 mg/dL (0.55-1.3)
[2020-08-26 12:04] LABS: BILIRUBIN,TOTAL 0.9 mg/dL (0.2-1); TOT PROT 7.1 g/dl (6.4-8.2)
[2020-08-26] MEDS ORDERED: LIDOCAINE 5% TOPICAL PATCH TP ONE (14:30)
[2020-08-26] MEDS ORDERED: KETOROLAC TROMETHAMINE 15 MG/ML VIAL IVPUSH ONE (14:30)
[2020-08-26] MEDS ORDERED: LIDOCAINE 5% TOPICAL PATCH ONE (15:12)
[2020-08-26] MEDS ORDERED: KETOROLAC TROMETHAMINE 15 MG/ML VIAL ONE (15:13)
[2020-08-26 15:41] LABS: EPI CELLS 19 /uL (0-25.1); HYALINE CASTS 1 /uL (0-3.1); URINE APPEARANCE CLEAR; URINE BACTERIA 148 /uL (0-1359); URINE BILIRUBIN NEGATIVE (NEGATIVE); URINE COLOR YELLOW; URINE GLUCOSE (UA) NEGATIVE (NEGATIVE); URINE KETONE NEGATIVE (NEGATIVE); URINE LEUK ESTERASE NEGATIVE (NEGATIVE); URINE NITRITE NEGATIVE (NEGATIVE); URINE PROTEIN TRACE (NEGATIVE); URINE RBC 63 /uL (0-23.9); URINE WBC 25 /uL (0-25.8)
[2020-08-26] MEDS ORDERED: MORPHINE SULFATE 2 MG/ML VIAL ONE (17:47)
[2020-08-27 00:24] VITALS: BMI 36.3
[2020-08-27] MEDS ORDERED: CYCLOBENZAPRINE HCL 10 MG TABLET (FP) PO ONE (01:45)
[2020-08-27] MEDS: MORPHINE SULFATE 2 MG/ML VIAL IVPUSH PRN ×4 (01:50→22:50)
[2020-08-27] MEDS ORDERED: LIDOCAINE PATCH REMOVAL MC ONE (03:00)
[2020-08-27 09:06] LABS: BASO % 0.4 % (0-2.0); EOS % 0.4 % (0-4.5); HEMATOCRIT 39.5 % (32.4-45.2); HEMOGLOBIN 13.3 GM/dL (10.7-15.3); LYMPH % 24.6 % (8-40); MCHC 33.5 g/dl (32.0-36.0); MEAN CELL VOLUME 89.3 fl (80-96); MEAN PLT VOLUME 8.1 fl (7.5-11.1); MONO % 10.8 % (3.8-10.2); NEUT % 63.8 % (42.8-82.8); PLATELET COUNT 224 K/MM3 (134-434); RBC 4.43 M/mm3 (3.60-5.2); RDW 13.2 % (11.6-15.6); WHITE BLOOD COUNT 9.9 K/mm3 (4.0-10.0)
[2020-08-27] MEDS ORDERED: TRAMADOL HCL PO PRN (09:06)
[2020-08-27] MEDS ORDERED: [UNRECOGNIZED DRUG - OTHER] PO PRN (09:06)
[2020-08-27] MEDS ORDERED: TIZANIDINE HCL 2 MG TABLET PO PRN (09:06)
[2020-08-27] MEDS ORDERED: ACETAMINOPHEN 500 MG TABLET (FP) PO PRN (09:07)
[2020-08-27 09:32] LABS: CALCIUM 7.9 mg/dL (8.5-10.1)
[2020-08-27 09:33] LABS: ALBUMIN 3.2 g/dl (3.4-5.0); BLOOD UREA NITROGEN 15.7 mg/dL (7-18)
[2020-08-27 09:37] LABS: CREATININE 0.7 mg/dL (0.55-1.3)
[2020-08-27 09:39] LABS: BILIRUBIN,TOTAL 0.8 mg/dL (0.2-1); TOT PROT 6.3 g/dl (6.4-8.2)
[2020-08-27] MEDS: amLODIPine BESYLATE 5 MG TABLET (FP) PO SCH (09:43)
[2020-08-27] MEDS ORDERED: traMADol HCL 50 MG TABLET PO PRN (11:09)
[2020-08-27] MEDS ORDERED: PT OWN MED DRAWER 7, Y5N ONE (13:24)
[2020-08-27] MEDS: GABAPENTIN 100 MG CAPSULE PO SCH ×2 (13:25→22:50)
[2020-08-27] MEDS ORDERED: GABAPENTIN 100 MG CAPSULE PO SCH (14:00)
[2020-08-27] MEDS: LIDOCAINE 5% TOPICAL PATCH TP SCH (18:03)
[2020-08-27] MEDS: LIDOCAINE PATCH REMOVAL MC SCH (22:21)
[2020-08-27] MEDS ORDERED: ACETAMINOPHEN 1000 MG/100 ML VIAL (NON FORMULARY) IVPB ONE (22:52)
[2020-08-28] MEDS: GABAPENTIN 100 MG CAPSULE PO SCH ×3 (06:14→21:37)
[2020-08-28] MEDS: MORPHINE SULFATE 2 MG/ML VIAL IVPUSH PRN (06:16)
[2020-08-28] MEDS: LIDOCAINE 5% TOPICAL PATCH TP SCH (09:52)
[2020-08-28] MEDS: amLODIPine BESYLATE 5 MG TABLET (FP) PO SCH (09:52)
[2020-08-28] MEDS: HEPARIN NA (PORCINE) 5,000 UNITS/ML 1ML VIAL SQ SCH ×2 (09:52→21:37)
[2020-08-28] MEDS: LIDOCAINE PATCH REMOVAL MC SCH (21:38)
[2020-08-29] MEDS: MORPHINE SULFATE 2 MG/ML VIAL IVPUSH PRN ×3 (01:54→21:41)
[2020-08-29] MEDS: GABAPENTIN 100 MG CAPSULE PO SCH ×3 (06:02→21:42)
[2020-08-29] MEDS: amLODIPine BESYLATE 5 MG TABLET (FP) PO SCH (10:37)
[2020-08-29] MEDS: LIDOCAINE 5% TOPICAL PATCH TP SCH (10:37)
[2020-08-29] MEDS: HEPARIN NA (PORCINE) 5,000 UNITS/ML 1ML VIAL SQ SCH ×2 (10:37→21:42)
[2020-08-29] MEDS: LIDOCAINE PATCH REMOVAL MC SCH (21:42)
[2020-08-30] MEDS ORDERED: POLYETHYLENE GLYCOL 3350 119 GM BTL PO PRN (04:00)
[2020-08-30] MEDS: GABAPENTIN 100 MG CAPSULE PO SCH ×3 (06:20→21:51)
[2020-08-30] MEDS: HEPARIN NA (PORCINE) 5,000 UNITS/ML 1ML VIAL SQ SCH ×2 (09:42→21:51)
[2020-08-30] MEDS: amLODIPine BESYLATE 5 MG TABLET (FP) PO SCH (09:42)
[2020-08-30] MEDS: LIDOCAINE 5% TOPICAL PATCH TP SCH (09:43)
[2020-08-30] MEDS: DEXAMETHASONE SOD PHOSPHATE 10 MG/1 ML VIAL IVPUSH SCH ×3 (11:13→21:51)
[2020-08-30] MEDS: LIDOCAINE PATCH REMOVAL MC SCH (21:51)
[2020-08-31] MEDS: MORPHINE SULFATE 2 MG/ML VIAL IVPUSH PRN (01:42)
[2020-08-31] MEDS: DEXAMETHASONE SOD PHOSPHATE 10 MG/1 ML VIAL IVPUSH SCH ×2 (04:00→10:24)
[2020-08-31] MEDS: GABAPENTIN 100 MG CAPSULE PO SCH ×3 (06:25→21:34)
[2020-08-31] MEDS: amLODIPine BESYLATE 5 MG TABLET (FP) PO SCH (10:25)
[2020-08-31] MEDS: HEPARIN NA (PORCINE) 5,000 UNITS/ML 1ML VIAL SQ SCH ×2 (10:25→21:34)
[2020-08-31] MEDS: LIDOCAINE 5% TOPICAL PATCH TP SCH (10:25)
[2020-08-31 14:16] VITALS: BP 134/68; PULSE 87; TEMP 97.8
[2020-08-31] MEDS: LIDOCAINE PATCH REMOVAL MC SCH (21:35)
[2020-09-01] MEDS ORDERED: DEXAMETHASONE 2 MG TABLET PO SCH (10:00)
== END 2020-08-31 22:38 | DRG 552 ==
LOC: JER 10:07 → JERBED 10:54 → J6S 19:23 → OBSVTOIN 08-30 10:54
PROVIDERS: ATTEND Family Medicine
PROC: 4A02XFZ Measurement of Cardiac Rhythm, External Approach (ICD-10-PCS; principal; 2020-08-27)
DX: M48.061 Spinal stenosis, lumbar region without neurogenic claudication (principal); M54.9 Dorsalgia, unspecified; M25.551 Pain in right hip; M25.59 Pain in other specified joint; I10 Essential (primary) hypertension; W18.30XA Fall on same level, unspecified, initial encounter; Y93.9 Activity, unspecified; Y92.89 Other specified places as the place of occurrence of the external cause; Y99.9 Unspecified external cause status; I49.9 Cardiac arrhythmia, unspecified
CPT/HCPCS: 36415; 72100-TC-FY; 72148-TC; 72192-TC; 73523-TC-FY; 80053; 81003; 85025; 93005; 93010; 97116-GP; 97163-GP; 99285-25; C9803; G0378; J0131; J1100; J1644; U0003; U0005

== ENCOUNTER 2021-10-22 19:21 | Inpatient (IN) | payer OTHER, BC ==
[2021-10-22 19:28] VITALS: BMI 37.5
[2021-10-22] MEDS ORDERED: ACETAMINOPHEN INJECTION 100 ML IVPB ONE (19:47)
[2021-10-22] MEDS ORDERED: ACETAMINOPHEN 1000 MG/100 ML BAG IVPB ONE (19:47)
[2021-10-22] MEDS ORDERED: morphine SULFATE 4 MG/ML VIAL IVPUSH ONE ×2 (20:20→20:22)
[2021-10-22] MEDS ORDERED: morphine SULFATE 4 MG/ML VIAL ONE ×2 (20:22→22:07)
[2021-10-22 20:34] LABS: BASO % 0.5 % (0-2.0); EOS % 0.9 % (0-4.5); HEMOGLOBIN 14.3 GM/dL (10.7-15.3); LYMPH % 13.9 % (8-40); MCH 30.3 pg (25.7-33.7); MCHC 33.9 g/dl (32.0-36.0); MEAN CELL VOLUME 89.4 fl (80-96); MEAN PLT VOLUME 8.2 fl (7.5-11.1); MONO % 5.5 % (3.8-10.2); NEUT % 79.2 % (42.8-82.8); PLATELET COUNT 219 10^3/uL (134-434); WHITE BLOOD COUNT 10.2 K/mm3 (4.0-10.0)
[2021-10-22 20:45] LABS: INR 1.21 (0.83-1.09)
[2021-10-22 20:48] LABS: ACTIVATED PTT 32.8 SECONDS (25.2-36.5)
[2021-10-22 20:58] LABS: ALBUMIN 3.9 g/dl (3.4-5.0); CALCIUM 9.2 mg/dL (8.5-10.1)
[2021-10-22 20:59] LABS: BLOOD UREA NITROGEN 18.4 mg/dL (7-18)
[2021-10-22 21:03] LABS: BILIRUBIN,TOTAL 0.4 mg/dL (0.2-1)
[2021-10-22] MEDS ORDERED: LIDOCAINE HCL 1%, 10 MG/ML (50 mL VIAL) SQ ONE (21:36)
[2021-10-22] MEDS ORDERED: LIDOCAINE HCL 1%, 10 MG/ML (20ML VIAL) ONE ×2 (21:39→23:47)
[2021-10-22 22:07] LABS: EPI CELLS 13 /uL (0-25.1); HYALINE CASTS 0 /uL (0-3.1); URINE APPEARANCE CLEAR; URINE BACTERIA 134 /uL (0-1359); URINE BILIRUBIN NEGATIVE (NEGATIVE); URINE COLOR YELLOW; URINE GLUCOSE (UA) TRACE (NEGATIVE); URINE KETONE NEGATIVE (NEGATIVE); URINE LEUK ESTERASE NEGATIVE (NEGATIVE); URINE NITRITE NEGATIVE (NEGATIVE); URINE PROTEIN NEGATIVE (NEGATIVE); URINE RBC 12 /uL (0-23.9); URINE UROBILINOGEN 0.2 mg/dL (0.2-1.0); URINE WBC 10 /uL (0-25.8)
[2021-10-22] MEDS ORDERED: morphine CARPU-JECT 4 MG/1 ML DISP.SYRIN IVPUSH ONE (22:14)
[2021-10-22] MEDS ORDERED: LIDOCAINE HCL 2% (50ML VIAL) SQ ONE (23:45)
[2021-10-23] MEDS ORDERED: morphine SULFATE 4 MG/ML VIAL ONE ×2 (00:02→02:13)
[2021-10-23] MEDS ORDERED: morphine SULFATE 4 MG/ML VIAL IVPUSH ONE ×2 (00:08→01:16)
[2021-10-23] MEDS ORDERED: LIDOCAINE HCL 1%, 10 MG/ML (50 mL VIAL) SQ ONE (00:09)
[2021-10-23] MEDS ORDERED: ACETAMINOPHEN 1000 MG/100 ML BAG IVPB PRN (02:32)
[2021-10-23] MEDS ORDERED: oxyCODONE HCL 5 MG TABLET ONE ×3 (04:13→13:14)
[2021-10-23] MEDS: oxyCODONE HCL 5 MG TABLET PO PRN ×5 (04:14→22:33)
[2021-10-23] MEDS ORDERED: DOCUSATE SODIUM 100 MG CAPSULE (FP) PO ONE ×2 (06:12→15:33)
[2021-10-23] MEDS ORDERED: ACETAMINOPHEN INJECTION 100 ML IVPB ONE (06:12)
[2021-10-23] MEDS: DOCUSATE SODIUM 100 MG CAPSULE (FP) PO SCH ×3 (06:17→21:18)
[2021-10-23 06:54] LABS: BASO % 0.2 % (0-2.0); HEMATOCRIT 40.8 % (32.4-45.2); HEMOGLOBIN 13.7 GM/dL (10.7-15.3); LYMPH % 12.4 % (8-40); MCHC 33.5 g/dl (32.0-36.0); MEAN CELL VOLUME 89.5 fl (80-96); MEAN PLT VOLUME 8.7 fl (7.5-11.1); MONO % 6.5 % (3.8-10.2); NEUT % 80.9 % (42.8-82.8); PLATELET COUNT 236 10^3/uL (134-434); RBC 4.57 M/mm3 (3.60-5.2); RDW 13.9 % (11.6-15.6); WHITE BLOOD COUNT 11.3 K/mm3 (4.0-10.0)
[2021-10-23 07:18] LABS: CALCIUM 9.1 mg/dL (8.5-10.1)
[2021-10-23 07:19] LABS: BLOOD UREA NITROGEN 19.9 mg/dL (7-18); MAGNESIUM 1.9 mg/dL (1.8-2.4)
[2021-10-23 07:22] LABS: CREATININE 0.9 mg/dL (0.55-1.3); PHOSPHOROUS 3.7 mg/dL (2.5-4.9)
[2021-10-23] MEDS ORDERED: LIDOCAINE 5% TOPICAL PATCH TP PRN (10:54)
[2021-10-23] MEDS ORDERED: NEBIVOLOL 5 MG TABLET (FP) PO SCH (11:00)
[2021-10-23] MEDS ORDERED: ACETAMINOPHEN 325 MG TABLET (FP) ONE (11:45)
[2021-10-23] MEDS: ACETAMINOPHEN 325 MG TABLET (FP) PO PRN ×2 (11:55→21:18)
[2021-10-23] MEDS: METOPROLOL TARTRATE 25 MG TABLET (FP) PO SCH (21:18)
[2021-10-23] MEDS: LIDOCAINE PATCH REMOVAL MC SCH (22:15)
[2021-10-24] MEDS ORDERED: ACETAMINOPHEN 325 MG TABLET (FP) PO PRN (02:20)
[2021-10-24] MEDS: DOCUSATE SODIUM 100 MG CAPSULE (FP) PO SCH ×3 (05:43→21:12)
[2021-10-24] MEDS: oxyCODONE HCL 5 MG TABLET PO PRN ×4 (05:43→20:10)
[2021-10-24] MEDS: ENOXAPARIN NA (PORCINE) 80 MG/0.8 ML DISP.SYRIN SQ SCH ×2 (09:53→21:51)
[2021-10-24] MEDS: METOPROLOL TARTRATE 25 MG TABLET (FP) PO SCH ×2 (09:53→21:12)
[2021-10-24] MEDS: LIDOCAINE PATCH REMOVAL MC SCH (21:15)
[2021-10-25] MEDS: oxyCODONE HCL 5 MG TABLET PO PRN ×2 (00:28→09:24)
[2021-10-25] MEDS: DOCUSATE SODIUM 100 MG CAPSULE (FP) PO SCH ×3 (06:51→22:30)
[2021-10-25] MEDS: METOPROLOL TARTRATE 25 MG TABLET (FP) PO SCH ×2 (09:24→22:31)
[2021-10-25] MEDS: ENOXAPARIN NA (PORCINE) 80 MG/0.8 ML DISP.SYRIN SQ SCH (09:25)
[2021-10-25] MEDS ORDERED: ONDANSETRON 4 MG/2 ML VIAL IVPUSH PRN ×2 (14:22→17:02)
[2021-10-25] MEDS ORDERED: PROMETHAZINE HCL 25 MG/1 ML VIAL IVPUSH PRN ×2 (14:22→17:02)
[2021-10-25] MEDS ORDERED: LACTATED RINGERS SOLUTION 1,000 ML IV SCH ×2 (14:30→17:02)
[2021-10-25] MEDS ORDERED: MIDAZOLAM HCL 2 MG/2 ML SINGLE DOSE VIAL ONE (14:37)
[2021-10-25] MEDS ORDERED: PROPOFOL 20 ML ONE (14:37)
[2021-10-25] MEDS ORDERED: ROPIVACAINE HCL 0.5% 30ML VIAL ONE (14:43)
[2021-10-25] MEDS ORDERED: LIDOCAINE HCL/PF 2% SDV 5ML VIAL ONE (15:12)
[2021-10-25] MEDS ORDERED: ceFAZolin SODIUM 1 GM VIAL ONE (15:18)
[2021-10-25] MEDS ORDERED: ceFAZolin SODIUM 1 GM VIAL IVPB ONE (15:22)
[2021-10-25] MEDS ORDERED: DEXAMETHASONE SOD PHOSPHATE 4 MG/1 ML VIAL ONE (15:23)
[2021-10-25] MEDS ORDERED: ONDANSETRON 4 MG/2 ML VIAL ONE (15:23)
[2021-10-25] MEDS ORDERED: KETOROLAC TROMETHAMINE 30 MG/1 ML VIAL ONE (15:49)
[2021-10-25] MEDS ORDERED: METOPROLOL TARTRATE 5 MG/5 ML VIAL ONE (16:34)
[2021-10-25] MEDS: ACETAMINOPHEN 325 MG TABLET (FP) PO PRN (20:11)
[2021-10-25] MEDS: LIDOCAINE PATCH REMOVAL MC SCH (22:31)
[2021-10-25] MEDS ORDERED: MELATONIN 5 MG TABLETS PO ONE (23:08)
[2021-10-26] MEDS: DOCUSATE SODIUM 100 MG CAPSULE (FP) PO SCH ×3 (06:18→21:52)
[2021-10-26] MEDS: oxyCODONE HCL 5 MG TABLET PO PRN ×3 (08:44→17:37)
[2021-10-26] MEDS: METOPROLOL TARTRATE 25 MG TABLET (FP) PO SCH ×2 (10:08→21:52)
[2021-10-26] MEDS: LIDOCAINE 5% TOPICAL PATCH TP PRN (10:10)
[2021-10-26] MEDS: ACETAMINOPHEN 325 MG TABLET (FP) PO PRN (20:05)
[2021-10-26] MEDS: MELATONIN 5 MG TABLETS PO PRN (21:52)
[2021-10-26] MEDS: LIDOCAINE PATCH REMOVAL MC SCH (21:53)
[2021-10-27] MEDS: oxyCODONE HCL 5 MG TABLET PO PRN ×5 (05:21→21:57)
[2021-10-27] MEDS: DOCUSATE SODIUM 100 MG CAPSULE (FP) PO SCH ×3 (06:28→21:57)
[2021-10-27] MEDS: ACETAMINOPHEN 325 MG TABLET (FP) PO PRN ×2 (06:29→13:12)
[2021-10-27 10:20] VITALS: RESP 18
[2021-10-27] MEDS: METOPROLOL TARTRATE 25 MG TABLET (FP) PO SCH ×2 (10:36→22:02)
[2021-10-27] MEDS: APIXABAN 5 MG TABLET PO SCH ×2 (10:36→21:57)
[2021-10-27] MEDS: LIDOCAINE 5% TOPICAL PATCH TP PRN (12:22)
[2021-10-27] MEDS ORDERED: FENTANYL PATCH WASTE MC PRN (15:28)
[2021-10-27] MEDS ORDERED: fentaNYL 12mcg/hr PATCH.TD72 TD SCH (15:30)
[2021-10-27] MEDS: MELATONIN 5 MG TABLETS PO PRN (21:57)
[2021-10-27] MEDS: LIDOCAINE PATCH REMOVAL MC SCH (22:02)
[2021-10-28] MEDS: oxyCODONE HCL 5 MG TABLET PO PRN ×3 (03:20→19:02)
[2021-10-28] MEDS: DOCUSATE SODIUM 100 MG CAPSULE (FP) PO SCH ×2 (06:36→15:47)
[2021-10-28] MEDS: APIXABAN 5 MG TABLET PO SCH (09:42)
[2021-10-28] MEDS: LIDOCAINE 5% TOPICAL PATCH TP PRN (09:42)
[2021-10-28] MEDS: METOPROLOL TARTRATE 25 MG TABLET (FP) PO SCH (09:42)
[2021-10-28 18:32] VITALS: BP 130/70; PULSE 88; TEMP 98
== END 2021-10-28 20:00 | DRG 511 ==
LOC: JER 19:21 → JERBED 20:23 → J4W 10-23 17:54
PROVIDERS: ADMIT Hospitalist; ATTEND Family Medicine
PROC: 0PSH04Z Reposition Right Radius with Internal Fixation Device, Open Approach (ICD-10-PCS; 2021-10-25)
PROC: 0PSFXZZ Reposition Right Humeral Shaft, External Approach (ICD-10-PCS; principal; 2021-10-25 14:00)
DX: S42.291A Other displaced fracture of upper end of right humerus, initial encounter for closed fracture (principal); I82.5Z3 Chronic embolism and thrombosis of unspecified deep veins of distal lower extremity, bilateral; S52.531A Colles' fracture of right radius, initial encounter for closed fracture; M25.531 Pain in right wrist; I10 Essential (primary) hypertension; M48.00 Spinal stenosis, site unspecified; R29.6 Repeated falls; I48.91 Unspecified atrial fibrillation; R55 Syncope and collapse; M25.511 Pain in right shoulder; W18.39XA Other fall on same level, initial encounter; Y92.098 Other place in other non-institutional residence as the place of occurrence of the external cause
CPT/HCPCS: 36415; 70450-TC; 71045-TC-FY; 72125-TC; 72170-TC-FY; 72192-TC; 73030-TC-RT-FY; 73070-TC-RT-FY; 73090-TC-RT-FY; 73110-TC-RT-FY; 73130-TC-RT-FY; 76000-TC-FY; 80048; 80053; 81003; 83735; 84100; 84484; 85025; 85610; 85730; 86850; 86900; 86901; 87086; 93005; 93010; 93306-TC; 94760; 97116-GP; 97162-GP; 99285-25; C9803-CS; U0003; U0005

== ENCOUNTER 2022-06-04 01:12 | Inpatient (IN) | payer OTHER, BC ==
[2022-06-04 01:22] VITALS: BMI 36.6
[2022-06-04] MEDS ORDERED: DOXYCYCLINE INJECTION 100 MG in DEXTROSE 5%-WATER 100 ML IVPB ONE (02:34)
[2022-06-04] MEDS ORDERED: CEFTRIAXONE 1 GM/50 ML BAG ONE (02:38)
[2022-06-04] MEDS ORDERED: ONDANSETRON *ODT* 4 MG TABLET SL ONE (02:44)
[2022-06-04] MEDS ORDERED: DOXYCYCLINE HYCLATE 100 MG VIAL ONE (02:58)
[2022-06-04 03:33] LABS: BASO % 0.5 % (0-2.0); EOS % 3.2 % (0-4.5); HEMOGLOBIN 14.4 GM/dL (10.7-15.3); LYMPH % 30.9 % (8-40); MCH 29.9 pg (25.7-33.7); MCHC 34.3 g/dl (32.0-36.0); MEAN CELL VOLUME 87.2 fl (80-96); MEAN PLT VOLUME 8.7 fl (7.5-11.1); MONO % 8.6 % (3.8-10.2); NEUT % 56.8 % (42.8-82.8); PLATELET COUNT 209 10^3/uL (134-434); RBC 4.82 M/mm3 (3.60-5.2); RDW 14.1 % (11.6-15.6); WHITE BLOOD COUNT 7.7 K/mm3 (4.0-10.0)
[2022-06-04 03:39] LABS: VENOUS BASE EXCESS 0.4 mmol/L (-2-2); VENOUS O2 SATURATION 62.6 % (70-80); VENOUS PCO2 47.7 mmHg (38-52); VENOUS PH 7.362 (7.310-7.410)
[2022-06-04 03:40] LABS: INR 1.45 (0.83-1.09); PROTHROMBIN TIME (PATIENT) 16.8 SEC (9.7-13.0)
[2022-06-04 03:42] LABS: ACTIVATED PTT 37.8 SECONDS (25.2-36.5)
[2022-06-04 03:48] LABS: CALCIUM 8.7 mg/dL (8.5-10.1)
[2022-06-04 03:49] LABS: ALBUMIN 3.6 g/dl (3.4-5.0); BLOOD UREA NITROGEN 19.8 mg/dL (7-18)
[2022-06-04 03:52] LABS: CREATININE 1.1 mg/dL (0.55-1.3)
[2022-06-04 03:54] LABS: BILIRUBIN,TOTAL 0.4 mg/dL (0.2-1); TOT PROT 6.9 g/dl (6.4-8.2)
[2022-06-04 03:57] LABS: N-TERMINAL BNP 806.5 pg/ml (5-450)
[2022-06-04] MEDS ORDERED: FUROSEMIDE 40 MG/4 ML INJECTABLE VIAL IVPUSH ONE (06:10)
[2022-06-04] MEDS ORDERED: NITROGLYCERIN 2% OINTMENT - 1GM PACKET TD ONE ×3 (06:12→15:07)
[2022-06-04] MEDS ORDERED: FUROSEMIDE 40 MG/4 ML INJECTABLE VIAL ONE ×2 (06:13→09:59)
[2022-06-04 06:19] LABS: EPI CELLS 2 /uL (0-25.1); HYALINE CASTS 0 /uL (0-3.1); URINE APPEARANCE CLEAR; URINE BACTERIA 9 /uL (0-1359); URINE BILIRUBIN NEGATIVE (NEGATIVE); URINE COLOR YELLOW; URINE GLUCOSE (UA) NEGATIVE (NEGATIVE); URINE KETONE NEGATIVE (NEGATIVE); URINE LEUK ESTERASE NEGATIVE (NEGATIVE); URINE NITRITE NEGATIVE (NEGATIVE); URINE PROTEIN NEGATIVE (NEGATIVE); URINE RBC 20 /uL (0-23.9); URINE UROBILINOGEN 0.2 mg/dL (0.2-1.0); URINE WBC 3 /uL (0-25.8)
[2022-06-04] MEDS ORDERED: amLODIPine BESYLATE 5 MG TABLET (FP) PO ONE (09:44)
[2022-06-04] MEDS ORDERED: amLODIPine BESYLATE 5 MG TABLET (FP) ONE (09:58)
[2022-06-04] MEDS ORDERED: GABAPENTIN 100 MG CAPSULE ONE (09:58)
[2022-06-04] MEDS ORDERED: APIXABAN 5 MG TABLET ONE (09:58)
[2022-06-04] MEDS ORDERED: FUROSEMIDE 40 MG/4 ML INJECTABLE VIAL IVPUSH SCH (10:00)
[2022-06-04] MEDS: NEBIVOLOL 5 MG TABLET (FP) PO SCH ×2 (11:28→15:11)
[2022-06-04] MEDS: GABAPENTIN 100 MG CAPSULE PO SCH ×2 (11:28→21:31)
[2022-06-04] MEDS: APIXABAN 5 MG TABLET PO SCH ×2 (11:28→21:30)
[2022-06-04] MEDS: NITROGLYCERIN 2% OINTMENT - 1GM PACKET TD SCH ×2 (15:12→18:45)
[2022-06-04] MEDS: FUROSEMIDE 40 MG/4 ML INJECTABLE VIAL IVPUSH SCH ×2 (15:34→21:33)
[2022-06-04] MEDS: ROSUVASTATIN CA 5 MG TABLET PO SCH (21:30)
[2022-06-04] MEDS: ACETAMINOPHEN 325 MG TABLET (FP) PO PRN (21:31)
[2022-06-04] MEDS: MELATONIN 5 MG TABLETS PO PRN (21:31)
[2022-06-05] MEDS: NITROGLYCERIN 2% OINTMENT - 1GM PACKET TD SCH ×4 (01:27→18:55)
[2022-06-05] MEDS: ACETAMINOPHEN 325 MG TABLET (FP) PO PRN ×3 (05:45→21:22)
[2022-06-05 07:05] LABS: BASO % 0.4 % (0-2.0); EOS % 1.5 % (0-4.5); HEMATOCRIT 44.9 % (32.4-45.2); HEMOGLOBIN 15.4 GM/dL (10.7-15.3); LYMPH % 33.2 % (8-40); MCHC 34.4 g/dl (32.0-36.0); MEAN CELL VOLUME 87.3 fl (80-96); MEAN PLT VOLUME 8.6 fl (7.5-11.1); MONO % 9.9 % (3.8-10.2); PLATELET COUNT 212 10^3/uL (134-434); RBC 5.14 M/mm3 (3.60-5.2); RDW 14.2 % (11.6-15.6); WHITE BLOOD COUNT 9.5 K/mm3 (4.0-10.0)
[2022-06-05 07:27] LABS: ALBUMIN 3.8 g/dl (3.4-5.0); CALCIUM 9.7 mg/dL (8.5-10.1)
[2022-06-05 07:28] LABS: BLOOD UREA NITROGEN 25.7 mg/dL (7-18)
[2022-06-05 07:31] LABS: CREATININE 1.1 mg/dL (0.55-1.3)
[2022-06-05 07:32] LABS: BILIRUBIN,TOTAL 0.9 mg/dL (0.2-1); TOT PROT 7.4 g/dl (6.4-8.2)
[2022-06-05] MEDS: GABAPENTIN 100 MG CAPSULE PO SCH ×2 (10:23→21:23)
[2022-06-05] MEDS: APIXABAN 5 MG TABLET PO SCH ×2 (10:23→21:22)
[2022-06-05] MEDS: FUROSEMIDE 40 MG/4 ML INJECTABLE VIAL IVPUSH SCH ×2 (10:23→21:23)
[2022-06-05] MEDS: LOSARTAN POTASSIUM 50 MG TABLET PO SCH (10:24)
[2022-06-05] MEDS: NEBIVOLOL 5 MG TABLET (FP) PO SCH (10:24)
[2022-06-05] MEDS: ROSUVASTATIN CA 5 MG TABLET PO SCH (21:23)
[2022-06-05] MEDS: MELATONIN 5 MG TABLETS PO PRN (21:23)
[2022-06-06] MEDS: NITROGLYCERIN 2% OINTMENT - 1GM PACKET TD SCH ×4 (03:38→18:00)
[2022-06-06] MEDS: ACETAMINOPHEN 325 MG TABLET (FP) PO PRN ×3 (09:55→21:20)
[2022-06-06] MEDS: GABAPENTIN 100 MG CAPSULE PO SCH ×2 (09:57→21:17)
[2022-06-06] MEDS: FUROSEMIDE 40 MG/4 ML INJECTABLE VIAL IVPUSH SCH (09:57)
[2022-06-06] MEDS: NEBIVOLOL 5 MG TABLET (FP) PO SCH (09:57)
[2022-06-06] MEDS: LOSARTAN POTASSIUM 50 MG TABLET PO SCH (09:57)
[2022-06-06] MEDS: APIXABAN 5 MG TABLET PO SCH ×2 (09:57→21:17)
[2022-06-06 13:48] LABS: BLOOD UREA NITROGEN 40.6 mg/dL (7-18)
[2022-06-06 13:49] LABS: CALCIUM 9.6 mg/dL (8.5-10.1)
[2022-06-06 13:51] LABS: MAGNESIUM 2.2 mg/dL (1.8-2.4)
[2022-06-06 13:52] LABS: CREATININE 1.4 mg/dL (0.55-1.3)
[2022-06-06] MEDS: ROSUVASTATIN CA 5 MG TABLET PO SCH (21:17)
[2022-06-06] MEDS: MELATONIN 5 MG TABLETS PO PRN (21:17)
[2022-06-07] MEDS: NITROGLYCERIN 2% OINTMENT - 1GM PACKET TD SCH ×3 (00:06→11:41)
[2022-06-07 08:11] LABS: BLOOD UREA NITROGEN 39.4 mg/dL (7-18); CALCIUM 8.9 mg/dL (8.5-10.1)
[2022-06-07 08:12] LABS: ALBUMIN 3.1 g/dl (3.4-5.0)
[2022-06-07 08:15] LABS: CREATININE 1.2 mg/dL (0.55-1.3)
[2022-06-07 08:16] LABS: TOT PROT 6.1 g/dl (6.4-8.2)
[2022-06-07] MEDS: GABAPENTIN 100 MG CAPSULE PO SCH (09:41)
[2022-06-07] MEDS: LOSARTAN POTASSIUM 50 MG TABLET PO SCH (09:41)
[2022-06-07] MEDS: APIXABAN 5 MG TABLET PO SCH (09:41)
[2022-06-07] MEDS: NEBIVOLOL 5 MG TABLET (FP) PO SCH (09:41)
[2022-06-07] MEDS: ACETAMINOPHEN 325 MG TABLET (FP) PO PRN (09:45)
[2022-06-07] MEDS ORDERED: PANTOPRAZOLE 40 MG TABLET PO SCH (10:00)
[2022-06-07] MEDS ORDERED: TORSEMIDE 20 MG TABLET (FP) PO SCH (10:00)
[2022-06-07] MEDS ORDERED: DEXAMETHASONE 4 MG TABLET (FP) PO SCH (10:00)
[2022-06-07 11:25] VITALS: BP 117/68; PULSE 78; RESP 18; TEMP 97.8
== END 2022-06-07 13:49 | DRG 291 ==
LOC: JER 01:12 → JERBED 08:47 → J4W 18:44
PROVIDERS: ADMIT Family Medicine; ATTEND Family Medicine
DX: I11.0 Hypertensive heart disease with heart failure (principal); I50.31 Acute diastolic (congestive) heart failure; I48.19 Other persistent atrial fibrillation; M48.56XA Collapsed vertebra, not elsewhere classified, lumbar region, initial encounter for fracture; J98.11 Atelectasis; M54.50 Low back pain, unspecified; M48.00 Spinal stenosis, site unspecified; R26.81 Unsteadiness on feet; E66.9 Obesity, unspecified; Z68.38 Body mass index [BMI] 38.0-38.9, adult; Z86.718 Personal history of other venous thrombosis and embolism
CPT/HCPCS: 0241U-QW; 36415; 71045-TC-FY; 71275-TC; 74174-TC; 80048; 80053; 81003; 82550; 82553; 82803; 83036; 83605; 83735; 83880; 84443; 84484; 85025; 85610; 85730; 86850; 86900; 86901; 87040; 87086; 93005; 93010; 97116-GP; 97162-GP; 99285-25; Q9967

== ENCOUNTER 2022-11-01 10:37 | Inpatient (IN) | payer OTHER, BC ==
[2022-11-01] MEDS ORDERED: DEXAMETHASONE SOD PHOSPHATE 10 MG/1 ML VIAL IVPUSH ONE (10:58)
[2022-11-01] MEDS ORDERED: LACTATED RINGERS SOLUTION 1,000 ML IV STA ×2 (10:59→15:20)
[2022-11-01] MEDS ORDERED: DEXAMETHASONE SOD PHOSPHATE 10 MG/1 ML VIAL ONE (11:08)
[2022-11-01] MEDS ORDERED: ACETAMINOPHEN 1000 MG/100 ML BAG IVPB ONE (11:11)
[2022-11-01 11:18] VITALS: BMI 34.3
[2022-11-01] MEDS: ALBUTEROL SO4 2.5/IPRATROPIUM 0.5 INH SOL 3 ML VIAL.NEB. NEB SCH ×2 (11:58→12:00)
[2022-11-01] MEDS ORDERED: ACETAMINOPHEN INJECTION 100 ML IVPB ONE (12:02)
[2022-11-01 12:06] LABS: BASO % 0.4 % (0-2.0); EOS % 0.1 % (0-4.5); HEMATOCRIT 43.4 % (32.4-45.2); HEMOGLOBIN 14.2 GM/dL (10.7-15.3); MCH 29.4 pg (25.7-33.7); MCHC 32.7 g/dl (32.0-36.0); MEAN CELL VOLUME 89.8 fl (80-96); MEAN PLT VOLUME 8.7 fl (7.5-11.1); MONO % 11.3 % (3.8-10.2); NEUT % 63.2 % (42.8-82.8); PLATELET COUNT 210 10^3/uL (134-434); RBC 4.83 M/mm3 (3.60-5.2); RDW 13.4 % (11.6-15.6); WHITE BLOOD COUNT 8.9 K/mm3 (4.0-10.0)
[2022-11-01 12:08] LABS: EPI CELLS 1 /uL (0-25.1); HYALINE CASTS 0 /uL (0-3.1); URINE APPEARANCE CLEAR; URINE BACTERIA 3 /uL (0-1359); URINE BILIRUBIN NEGATIVE (NEGATIVE); URINE COLOR YELLOW; URINE GLUCOSE (UA) NEGATIVE (NEGATIVE); URINE KETONE NEGATIVE (NEGATIVE); URINE LEUK ESTERASE NEGATIVE (NEGATIVE); URINE NITRITE NEGATIVE (NEGATIVE); URINE PROTEIN NEGATIVE (NEGATIVE); URINE RBC 29 /uL (0-23.9); URINE UROBILINOGEN 0.2 mg/dL (0.2-1.0); URINE WBC 1 /uL (0-25.8); VENOUS BASE EXCESS 2.2 mmol/L (-2-2); VENOUS O2 SATURATION 91.6 % (70-80); VENOUS PCO2 38.5 mmHg (38-52); VENOUS PH 7.449 (7.310-7.410)
[2022-11-01] MEDS ORDERED: dilTIAZem HCL 50 MG/10 ML - 10 ML VIAL IVPUSH ONE (12:09)
[2022-11-01] MEDS ORDERED: LOSARTAN POTASSIUM 50 MG TABLET PO ONE (12:09)
[2022-11-01] MEDS ORDERED: NEBIVOLOL 5 MG TABLET (FP) PO ONE (12:10)
[2022-11-01] MEDS ORDERED: dilTIAZem HCL 50 MG/10 ML - 10 ML VIAL ONE (12:11)
[2022-11-01 12:12] LABS: INR 1.6 (0.83-1.09); PROTHROMBIN TIME (PATIENT) 18.5 SEC (9.7-13.0)
[2022-11-01 12:15] LABS: ACTIVATED PTT 37.1 SECONDS (25.2-36.5)
[2022-11-01 12:24] LABS: CHLORIDE 106 mmol/L (98-107); POTASSIUM 3.3 mmol/L (3.5-5.1); SODIUM 141 mmol/L (136-145)
[2022-11-01 12:27] LABS: ALBUMIN 3.7 g/dl (3.4-5.0); ANION GAP 5 MMOL/L (8-16); CO2 30 mmol/L (21-32); GLUCOSE,RANDOM 138 mg/dL (74-106)
[2022-11-01] MEDS ORDERED: POTASSIUM CHLORIDE ORAL LIQUID 20 MEQ/15 ML PO ONE (12:27)
[2022-11-01 12:28] LABS: BLOOD UREA NITROGEN 13.8 mg/dL (7-18); CALCIUM 9.3 mg/dL (8.5-10.1)
[2022-11-01 12:30] LABS: CREATININE 1.1 mg/dL (0.55-1.3); SGOT/AST 21 U/L (15-37); SGPT/ALT 25 U/L (13-61)
[2022-11-01 13:07] LABS: ALK PHOS 88 U/L (45-117)
[2022-11-01 13:17] LABS: BILIRUBIN,TOTAL 0.9 mg/dL (0.2-1); TOT PROT 7.6 g/dl (6.4-8.2)
[2022-11-01] MEDS ORDERED: LOSARTAN POTASSIUM 50 MG TABLET ONE (13:35)
[2022-11-01] MEDS ORDERED: POTASSIUM CHLORIDE ORAL LIQUID 20 MEQ/15 ML ONE (13:36)
[2022-11-01] MEDS ORDERED: METOPROLOL TARTRATE 5 MG/5 ML VIAL IVPUSH PRN (15:11)
[2022-11-01] MEDS ORDERED: REMDESIVIR 200 MG in SODIUM CHLORIDE 250 ML IVPB ONE (16:43)
[2022-11-01] MEDS: D5-1/2NS+20 MEQ KCL - 20 MEQ/1,000 ML INFUS.BAG IV SCH (17:13)
[2022-11-01] MEDS: GABAPENTIN 100 MG CAPSULE PO SCH (22:17)
[2022-11-01] MEDS: APIXABAN 5 MG TABLET PO SCH (22:17)
[2022-11-01] MEDS: ROSUVASTATIN CA 5 MG TABLET PO SCH (22:17)
[2022-11-01] MEDS: MELATONIN 5 MG TABLETS PO PRN (22:17)
[2022-11-02 07:56] LABS: BASO % 0.2 % (0-2.0); EOS % 0.1 % (0-4.5); HEMATOCRIT 37.9 % (32.4-45.2); HEMOGLOBIN 12.6 GM/dL (10.7-15.3); LYMPH % 18.7 % (8-40); MCH 29.6 pg (25.7-33.7); MCHC 33.2 g/dl (32.0-36.0); MEAN CELL VOLUME 89.1 fl (80-96); MEAN PLT VOLUME 8.8 fl (7.5-11.1); MONO % 9.7 % (3.8-10.2); NEUT % 71.3 % (42.8-82.8); PLATELET COUNT 196 10^3/uL (134-434); RBC 4.26 M/mm3 (3.60-5.2); WHITE BLOOD COUNT 8.5 K/mm3 (4.0-10.0)
[2022-11-02 08:25] LABS: CALCIUM 8.7 mg/dL (8.5-10.1)
[2022-11-02 08:26] LABS: BLOOD UREA NITROGEN 17.1 mg/dL (7-18)
[2022-11-02 08:31] LABS: BILIRUBIN,TOTAL 0.4 mg/dL (0.2-1); TOT PROT 6.2 g/dl (6.4-8.2)
[2022-11-02] MEDS: APIXABAN 5 MG TABLET PO SCH ×2 (10:34→21:25)
[2022-11-02] MEDS: PANTOPRAZOLE 40 MG TABLET PO SCH (10:34)
[2022-11-02] MEDS: DEXAMETHASONE SOD PHOSPHATE 10 MG/1 ML VIAL IVPUSH SCH (10:34)
[2022-11-02] MEDS: NEBIVOLOL 5 MG TABLET (FP) PO SCH (10:34)
[2022-11-02] MEDS: ISOSORBIDE MONONITRATE 30 MG TAB.SR.24H (FP) PO SCH (10:34)
[2022-11-02] MEDS: LOSARTAN POTASSIUM 50 MG TABLET PO SCH (10:34)
[2022-11-02] MEDS: GABAPENTIN 100 MG CAPSULE PO SCH ×2 (10:34→21:25)
[2022-11-02] MEDS: REMDESIVIR 100 MG in SODIUM CHLORIDE 250 ML IVPB SCH (10:35)
[2022-11-02] MEDS: D5-1/2NS+20 MEQ KCL - 20 MEQ/1,000 ML INFUS.BAG IV SCH (17:27)
[2022-11-02] MEDS: MELATONIN 5 MG TABLETS PO PRN (21:25)
[2022-11-02] MEDS: ROSUVASTATIN CA 5 MG TABLET PO SCH (21:25)
[2022-11-02] MEDS ORDERED: INSULIN SLIDING SCALE (NOVOLOG) 1 VIAL SQ ONE (21:33)
[2022-11-02] MEDS: ACETAMINOPHEN 325 MG TABLET (FP) PO PRN (22:34)
[2022-11-03] MEDS: DEXAMETHASONE SOD PHOSPHATE 10 MG/1 ML VIAL IVPUSH SCH (10:54)
[2022-11-03] MEDS: ISOSORBIDE MONONITRATE 30 MG TAB.SR.24H (FP) PO SCH (10:55)
[2022-11-03] MEDS: REMDESIVIR 100 MG in SODIUM CHLORIDE 250 ML IVPB SCH (10:55)
[2022-11-03] MEDS: NEBIVOLOL 5 MG TABLET (FP) PO SCH (10:55)
[2022-11-03] MEDS: GABAPENTIN 100 MG CAPSULE PO SCH ×2 (10:55→21:47)
[2022-11-03] MEDS: APIXABAN 5 MG TABLET PO SCH ×2 (10:55→21:47)
[2022-11-03] MEDS: LOSARTAN POTASSIUM 50 MG TABLET PO SCH (10:55)
[2022-11-03] MEDS: PANTOPRAZOLE 40 MG TABLET PO SCH (10:55)
[2022-11-03] MEDS: D5-1/2NS+20 MEQ KCL - 20 MEQ/1,000 ML INFUS.BAG IV SCH (17:01)
[2022-11-03] MEDS: ROSUVASTATIN CA 5 MG TABLET PO SCH (21:48)
[2022-11-03] MEDS: MELATONIN 5 MG TABLETS PO PRN (21:52)
[2022-11-03] MEDS: ACETAMINOPHEN 325 MG TABLET (FP) PO PRN (21:52)
[2022-11-04] MEDS: REMDESIVIR 100 MG in SODIUM CHLORIDE 250 ML IVPB SCH (09:32)
[2022-11-04] MEDS: GABAPENTIN 100 MG CAPSULE PO SCH ×2 (09:33→22:24)
[2022-11-04] MEDS: DEXAMETHASONE SOD PHOSPHATE 10 MG/1 ML VIAL IVPUSH SCH (09:33)
[2022-11-04] MEDS: ISOSORBIDE MONONITRATE 30 MG TAB.SR.24H (FP) PO SCH (09:33)
[2022-11-04] MEDS: LOSARTAN POTASSIUM 50 MG TABLET PO SCH (09:33)
[2022-11-04] MEDS: NEBIVOLOL 5 MG TABLET (FP) PO SCH (09:33)
[2022-11-04] MEDS: PANTOPRAZOLE 40 MG TABLET PO SCH (09:33)
[2022-11-04] MEDS: APIXABAN 5 MG TABLET PO SCH ×2 (09:33→22:24)
[2022-11-04] MEDS: ACETAMINOPHEN 325 MG TABLET (FP) PO PRN (18:24)
[2022-11-04] MEDS: D5-1/2NS+20 MEQ KCL - 20 MEQ/1,000 ML INFUS.BAG IV SCH (18:25)
[2022-11-04] MEDS: MELATONIN 5 MG TABLETS PO PRN (22:24)
[2022-11-04] MEDS: ROSUVASTATIN CA 5 MG TABLET PO SCH (22:24)
[2022-11-05] MEDS: ISOSORBIDE MONONITRATE 30 MG TAB.SR.24H (FP) PO SCH (10:46)
[2022-11-05] MEDS: DEXAMETHASONE SOD PHOSPHATE 10 MG/1 ML VIAL IVPUSH SCH (10:46)
[2022-11-05] MEDS: APIXABAN 5 MG TABLET PO SCH ×2 (10:46→22:23)
[2022-11-05] MEDS: REMDESIVIR 100 MG in SODIUM CHLORIDE 250 ML IVPB SCH (10:46)
[2022-11-05] MEDS: LOSARTAN POTASSIUM 50 MG TABLET PO SCH (10:46)
[2022-11-05] MEDS: PANTOPRAZOLE 40 MG TABLET PO SCH (10:46)
[2022-11-05] MEDS: GABAPENTIN 100 MG CAPSULE PO SCH ×2 (10:46→22:23)
[2022-11-05] MEDS: NEBIVOLOL 5 MG TABLET (FP) PO SCH (10:46)
[2022-11-05] MEDS: D5-1/2NS+20 MEQ KCL - 20 MEQ/1,000 ML INFUS.BAG IV SCH (19:37)
[2022-11-05] MEDS: ROSUVASTATIN CA 5 MG TABLET PO SCH (22:23)
[2022-11-05] MEDS: MELATONIN 5 MG TABLETS PO PRN (22:23)
[2022-11-05] MEDS: ACETAMINOPHEN 325 MG TABLET (FP) PO PRN (22:23)
[2022-11-06 08:42] LABS: HEMATOCRIT 39.2 % (32.4-45.2); HEMOGLOBIN 13.2 GM/dL (10.7-15.3); MCH 29.8 pg (25.7-33.7); MCHC 33.6 g/dl (32.0-36.0); MEAN CELL VOLUME 88.5 fl (80-96); MEAN PLT VOLUME 8.9 fl (7.5-11.1); PLATELET COUNT 209 10^3/uL (134-434); RBC 4.44 M/mm3 (3.60-5.2); RDW 12.9 % (11.6-15.6); WHITE BLOOD COUNT 9.2 K/mm3 (4.0-10.0)
[2022-11-06] MEDS: NEBIVOLOL 5 MG TABLET (FP) PO SCH (09:01)
[2022-11-06] MEDS: ISOSORBIDE MONONITRATE 30 MG TAB.SR.24H (FP) PO SCH (09:02)
[2022-11-06] MEDS: DEXAMETHASONE SOD PHOSPHATE 10 MG/1 ML VIAL IVPUSH SCH (09:02)
[2022-11-06] MEDS: GABAPENTIN 100 MG CAPSULE PO SCH ×2 (09:02→22:15)
[2022-11-06] MEDS: PANTOPRAZOLE 40 MG TABLET PO SCH (09:02)
[2022-11-06] MEDS: LOSARTAN POTASSIUM 50 MG TABLET PO SCH (09:03)
[2022-11-06] MEDS: APIXABAN 5 MG TABLET PO SCH ×2 (09:03→22:15)
[2022-11-06 09:07] LABS: POTASSIUM 4.5 mmol/L (3.5-5.1)
[2022-11-06 09:12] LABS: ALBUMIN 2.9 g/dl (3.4-5.0); BLOOD UREA NITROGEN 23.2 mg/dL (7-18); CALCIUM 9.3 mg/dL (8.5-10.1)
[2022-11-06 09:15] LABS: CREATININE 0.9 mg/dL (0.55-1.3)
[2022-11-06 09:17] LABS: BILIRUBIN,TOTAL 0.6 mg/dL (0.2-1); TOT PROT 6.2 g/dl (6.4-8.2)
[2022-11-06 09:40] LABS: ANISOCYTOSIS 0; HELMET CELLS 0; HOWELL-JOLLY BODIES 0; MACROCYTOSIS 0; OVALOCYTE 0; ROULEAU 0; SICKELED CELLS 0; TARGET CELLS 0; TEAR DROP CELLS 0; TOXIC GRANULATION 0
[2022-11-06] MEDS: MELATONIN 5 MG TABLETS PO PRN (22:15)
[2022-11-06] MEDS: ACETAMINOPHEN 325 MG TABLET (FP) PO PRN (22:15)
[2022-11-06] MEDS: ROSUVASTATIN CA 5 MG TABLET PO SCH (22:15)
[2022-11-07] MEDS: LOSARTAN POTASSIUM 50 MG TABLET PO SCH (09:37)
[2022-11-07] MEDS: GABAPENTIN 100 MG CAPSULE PO SCH ×2 (09:37→21:00)
[2022-11-07] MEDS: NEBIVOLOL 5 MG TABLET (FP) PO SCH (09:37)
[2022-11-07] MEDS: APIXABAN 5 MG TABLET PO SCH ×2 (09:37→21:00)
[2022-11-07] MEDS: PANTOPRAZOLE 40 MG TABLET PO SCH (09:38)
[2022-11-07] MEDS: DEXAMETHASONE SOD PHOSPHATE 10 MG/1 ML VIAL IVPUSH SCH (09:38)
[2022-11-07] MEDS: ISOSORBIDE MONONITRATE 30 MG TAB.SR.24H (FP) PO SCH (09:38)
[2022-11-07] MEDS: MELATONIN 5 MG TABLETS PO PRN (21:00)
[2022-11-07] MEDS: ACETAMINOPHEN 325 MG TABLET (FP) PO PRN (21:13)
[2022-11-07] MEDS: ROSUVASTATIN CA 5 MG TABLET PO SCH (21:55)
[2022-11-08 07:02] VITALS: RESP 18
[2022-11-08] MEDS ORDERED: NEBIVOLOL 5 MG TABLET (FP) PO SCH (08:35)
[2022-11-08] MEDS: LOSARTAN POTASSIUM 50 MG TABLET PO SCH (09:42)
[2022-11-08] MEDS: GABAPENTIN 100 MG CAPSULE PO SCH (09:43)
[2022-11-08] MEDS: ISOSORBIDE MONONITRATE 30 MG TAB.SR.24H (FP) PO SCH (09:43)
[2022-11-08] MEDS: PANTOPRAZOLE 40 MG TABLET PO SCH (09:43)
[2022-11-08] MEDS: APIXABAN 5 MG TABLET PO SCH (09:43)
[2022-11-08] MEDS: DEXAMETHASONE SOD PHOSPHATE 10 MG/1 ML VIAL IVPUSH SCH (09:43)
[2022-11-08 11:10] VITALS: BP 177/107; PULSE 70; TEMP 97.8
== END 2022-11-08 13:33 | DRG 177 ==
LOC: JER 10:37 → JERBED 13:08 → J4S 18:47
PROVIDERS: ADMIT Family Medicine; ATTEND Family Medicine
PROC: 3E0333Z Introduction of Anti-inflammatory into Peripheral Vein, Percutaneous Approach (ICD-10-PCS; 2022-11-01)
PROC: XW033E5 Introduction of Remdesivir Anti-infective into Peripheral Vein, Percutaneous Approach, New Technology Group 5 (ICD-10-PCS; principal; 2022-11-02)
DX: U07.1 COVID-19 (principal); J12.82 Pneumonia due to coronavirus disease 2019; I48.19 Other persistent atrial fibrillation; J44.9 Chronic obstructive pulmonary disease, unspecified; R09.02 Hypoxemia; E87.6 Hypokalemia; I11.0 Hypertensive heart disease with heart failure; I50.9 Heart failure, unspecified; Z86.718 Personal history of other venous thrombosis and embolism; M54.50 Low back pain, unspecified; E78.5 Hyperlipidemia, unspecified
CPT/HCPCS: 0241U-QW; 36415; 71045-TC-FY; 80053; 81003; 82550; 82553; 82728; 82803; 83605; 84436; 84443; 84484; 85025; 85610; 85730; 86140; 86850; 86900; 86901; 87040; 87077; 87086; 87635; 93005; 93010; 97116-GP; 97161-GP; 99291; C9399; J1100